=== PATIENT | male | born 1955 | race Caucasian/White ===

== ENCOUNTER 2016-09-03 14:26 | Emergency (ER) | payer BC, OTHER ==
[~2016-09-03] VITALS: Ht 172.7 cm; Wt 88.0 kg
[~2016-09-03 14:26] MED LIST: ASPEC81 PO; CARV3.12 PO; LISI20TA3 PO; VYT/1040 PO
[2016-09-03 14:31] VITALS: Ht 172.7 cm; Wt 88.0 kg
[2016-09-03] MEDS ORDERED: OXYMETAZOLINE HCL 0.05% NA SPR 15 ML BTL STA (14:58)
[2016-09-03] MEDS ORDERED: OXYMETAZOLINE HCL 0.05% NA SPR 15 ML BTL ONE (14:58)
[2016-09-03] MEDS ORDERED: CRG625 PO (15:39)
[2016-09-03] MEDS ORDERED: LSN40 PO (15:39)
[2016-09-03] MEDS ORDERED: ATOR-24 PO (15:39)
[2016-09-03] MEDS ORDERED: ASPI81TA21 PO (15:39)
[2016-09-03 16:22] LABS: HEMATOCRIT 44.9 % (42-52); MEAN CELL VOLUME 94.7 fL (80-100); MEAN CORPUSCULAR HEMOGLOBIN 32.9 pg (25-34); MEAN CORPUSCULAR HGB CONC 34.7 g/dl (32-36); MEAN PLATELET VOLUME 10.8 fL (7.4-10.4); PLATELET COUNT 246 K/uL (130-400); RED BLOOD COUNT 4.74 M/uL (4.7-6.1); WHITE BLOOD COUNT 18.74 K/uL (4.8-10.8)
[2016-09-03 16:32] LABS: PROTHROMBIN TIME (PATIENT) 10.7 SECONDS (9.0-12.0)
[2016-09-03 16:59] VITALS: BP 156/90
[2016-09-03 17:06] VITALS: PULSE 89; TEMP 36.7; O2SAT 98
--- NOTE | 2016-09-03 19:53 | EMERGENCY ROOM VISIT NOTE ---
History Report prepared by Angelaibrene: Edelmira Ash Under the Supervision of: Dr. Tee Guillen M.D. First contact with patient: 15:06 Chief Complaint: NOSE BLEED (MINOR) Stated Complaint: NOSE BLEED History of Present Illness The patient is a 61 year old male who presents to the Emergency Room with complaints of a persistent, spontaneous, right-sided nose bleed that began 2 hours ago. The patient has had some cold-like symptoms over the past week. Earlier this afternoon, he was shoveling snow. He came inside and sat down and then his nose started to bleed. The patient put gauze up his right nostril, which seemed to make the bleeding subside, until it was removed upon arrival, and the bleeding began again. The patient has never had similar nosebleeds. He is on 81 mg aspirin daily. The patient has a history of blockage of heart arteries but has never needed CABG or stents. Denies chest pain, shortness of breath or other complaints. Source of History: patient Onset: 2 hour ago Position: nose (right side) Quality: other (spontaneous) Timing: other (persistent) Associated Symptoms: No chest pain Review of Systems See HPI for pertinent positives & negatives. A total of 10 systems reviewed and were otherwise negative. Past Medical & Surgical Medical Problems: (1) Bladder cancer (2) Left inguinal hernia Family History No pertinent family history stated. Social History Smoking Status: Current Every Day Smoker Marital Status: Housing Status: lives with significant other Occupation Status: employed Current/Historical Medications Scheduled Aspirin Enteric Coated (Ecotrin Or Generic), 81 MG PO QAM Atorvastatin (Lipitor), 40 MG PO QPM Carvedilol (Carvedilol), 6.25 MG PO BID Lisinopril (Lisinopril), 40 MG PO QAM Allergies Coded Allergies: Clindamycin (Verified Allergy, Unknown, RASH, 09/03/16) Latex1 -Allergic Contact Dermititis (Verified Allergy, Unknown, ?? MOUTH SORENESS AFTER DENTAL VISIT, 09/03/16) Metoprolol (Verified Allergy, Unknown, METOPROLOL ALLERGY??, 09/03/16) Physical Exam Vital Signs Date Time Temp Pulse Resp B/P Pulse Ox O2 Delivery O2 Flow Rate FiO2 09/03/16 17:06 36.7 89 18 98 Room Air 09/03/16 16:59 36.7 89 18 156/90 98 09/03/16 14:31 36.7 102 18 168/110 94 Room Air Physical Exam Constitutional: Vital signs reviewed. Eyes: Pupils are equal round reactive to light. Conjunctiva are noninjected. ENT: Pharynx is clear without erythema or exudate. Mucous membranes are moist. Active significant bleeding from both nares. Neck supple without meningeal signs. Respiratory: Clear to auscultation bilaterally. Breath sounds are equal bilaterally. Cardiovascular: Regular rate and rhythm. No rubs or gallops. GI: Soft, nondistended and nontender. Bowel sounds are present. Musculoskeletal: No peripheral edema. No lower extremity tenderness. No CVA tenderness. Integumentary: No cyanosis. Neurological: The patient is awake and alert. No focal deficits. Psychiatric: Anxious. Medical Decision & Procedures Laboratory Results 09/03/16 16:05 Test 09/03/16 16:05 Red Blood Count 4.74 M/uL (4.7-6.1) Mean Corpuscular Volume 94.7 fL (80-100) Mean Corpuscular Hemoglobin 32.9 pg (25-34) Mean Corpuscular Hemoglobin Concent 34.7 g/dl (32-36) RDW Standard Deviation 45.2 fL (36.4-46.3) RDW Coefficient of Variation 13.0 % (11.5-14.5) Mean Platelet Volume 10.8 fL (7.4-10.4) Prothrombin Time 10.7 SECONDS (9.0-12.0) Prothromb Time International Ratio 1.0 (0.9-1.1) Activated Partial Thromboplast Time 26.2 SECONDS (21.0-31.0) Partial Thromboplastin Ratio 1.0 Laboratory results as reviewed by me. Medications Administered Medications (Trade) Dose Ordered Sig/Mary Route Start Time Stop Time Status Last Admin Dose Admin Oxymetazoline HCl (Afrin 0.05% Nasal [place]) 75 sprays STK-MED ONCE .ROUTE 09/03/16 14:58 09/03/16 15:00 DC 09/03/16 15:48 75 SPRAYS Procedure Anterior Nasal Packing Indication: Significant active bleeding from both nostrils Verbal consent obtained. Risks and benefits were explained with the usual customary discussion. A 5.5-cm nasal balloon was placed in the right naris in a standard fashion. Hemostasis was not achieved and he was bleeding profusely from the left naris. I therefore packed the left naris with a 4-1/2 rapid Rhino. His bleeding continued. Both rapid Rhino as were removed. Clots were removed with blowing his nose. Both nares were prepped with Afrin and hemaderm. A second 5-1/2 cm rapid Rhino was placed in the right naris slightly deeper than the first and inflated to greater per capacity. The patient tolerated this well. Hemostasis was achieved. No complications. ED Course 1509: The patient was evaluated in room A10. A complete history and physical exam was performed. Anterior nasal packing to the right naris was performed. 1540: At this time, the bleeding was controlled. 1544: The patient started to have bleeding again. The cuff was inflated again which seemed to stop the bleeding. 1628: I reassessed the patient. He had a minimal amount of bleeding anteriorly so I inflated the balloon with 1 cc of air. 1641: I reassessed the patient. He had no active bleeding. I discussed test results with him. He will follow up with his PCP in 2 days to have his packing checked and his CBC rechecked. The patient will be discharged home. Medical Decision This is a 61-year-old male who presents with significant epistaxis.I did perform a limited focused review of portions of the patient's old chart on the electronic medical record. The patient has had no recent pertinent visits to this hospital. I did evaluate the patient as noted above. He is presenting with profuse bleeding to both nares. He is coughing and spitting up blood and bleeding despite having a clamp on his nose. Direct pressure with my fingers they did not achieve hemostasis as well. I did talk to him about packing which he agreed to. I did pack his nose as described above. Hemostasis was achieved. I did review the patient's blood work as noted in the electronic medical record. His hematocrit is stable. His white blood cell count is elevated which may be secondary to his recent URI as well as stress from the epistaxis. I did, however, advised him to have it rechecked by his physician. He did have a little bleeding from the right naris anteriorly. I did check the balloon and it did seem to deflate slightly and so I put some more air into the balloon and hemostasis was achieved. We observed him further and he had no further bleeding. He is not having any significant pain. I did discuss risks of the balloon with him and reasons to return. He was advised to follow with his doctor in 48 hours to have it rechecked. I did discharge the patient. Impression Primary Impression: Epistaxis Additional Impression: Leukocytosis Scribe Attestation The scribe's documentation has been prepared under my direct and personally reviewed by me in its entirety. I confirm that the note above accurately reflects all work, treatment, procedures, and medical decision making performed by me. Departure Information Dispostion Home / Self-Care Referrals No Doctor, Assigned (PCP) Patient Instructions ED Nasal Packing Anterior Removable, My [facility] Additional Instructions You have been examined and treated today on an emergency basis only. This is not a substitute for, or an effort to provide, complete comprehensive medical care. It is impossible to recognize and treat all injuries or illnesses in a single emergency department visit. It is therefore important that you follow up closely with your physician in 48 hours. Call as soon as possible for an appointment. Return for worsening symptoms or if you develop fever, chest pain , shortness of breath, significant nasal pain or any other concerning symptoms. Have your doctor recheck your CBC because your white blood cell count was elevated today. Problem Qualifiers Additional Impression: Leukocytosis Leukocytosis type: unspecified Qualified Codes: D72.829 - Elevated white blood cell count, unspecified
[2016-09-09] MEDS ORDERED: AYRG (10:58)
[2016-09-09] MEDS ORDERED: SALI0.6510 (10:58)
[2016-09-09] MEDS ORDERED: NICO14DI5 TD (10:58)
[2016-09-09] MEDS ORDERED: AFRIN (10:58)
== END 2016-09-03 17:06 | disposition home or self-care (01) ==
LOC: EDBD 14:26 → C.EDA 14:29
DX: R04.0 Epistaxis (principal); D72.829 Elevated white blood cell count, unspecified; Z79.82 Long term (current) use of aspirin; Z85.51 Personal history of malignant neoplasm of bladder; F17.210 Nicotine dependence, cigarettes, uncomplicated; Z79.899 Other long term (current) drug therapy

== ENCOUNTER 2016-09-04 22:59 | Inpatient (IN) | payer OTHER ==
[~2016-09-04] VITALS: Ht 175.3 cm; Wt 85.5 kg
[~2016-09-04 22:59] MED LIST changes: -ASPEC81 PO; +ASPI81TA21 PO; +ATOR-24 PO; -CARV3.12 PO; +CRG625 PO; -LISI20TA3 PO; +LSN40 PO; -VYT/1040 PO
[2016-09-05] MEDS ORDERED: OXYMETAZOLINE HCL 0.05% NA SPR 15 ML BTL ONE (00:02)
--- NOTE | 2016-09-05 00:26 | EMERGENCY ROOM VISIT NOTE ---
History Report prepared by Chasidy: Luciana Redman Under the Supervision of: Dr. Zeina Bender M.D. First contact with patient: 23:38 Chief Complaint: NOSE BLEED (MAJOR) Stated Complaint: NOSE BLEED History of Present Illness The patient is a 61 year old male who presents to the Emergency Room with complaints of a constant nosebleed for the past 2 hours. Yesterday the patient had a spontaneous, right-sided nosebleed that began after shoveling snow. He reports that he has had cold symptoms for the past few days and he has been sneezing and blowing his nose often. He was seen in the ED yesterday for this episode and nasal packing was placed. The patient was discharged home. He had some slight bleeding down the back of his throat throughout the night. This evening he coughed and states that the nasal packing seems to have dislodged. He reports burning pain from the packing and rates the pain as a 2/10 in severity. The patient states that the bleeding has been constant and heavy since he coughed. He has had clots in the back of his throat and states that he felt like he was "drowning in blood." The patient was taking a daily baby aspirin, but stopped taking it yesterday. He denies any other blood thinners. Source of History: patient, spouse/significant other Onset: 2 hours ago Position: nose Symptom Intensity: 2/10 Quality: other (bleeding) Timing: constant Modifying Factors (Worsening): other (coughing) Review of Systems See HPI for pertinent positives & negatives. A total of 10 systems reviewed and were otherwise negative. Past Medical & Surgical Medical Problems: (1) Coronary artery disease (2) Dyslipidemia (3) History of bladder cancer (4) Hypertension (5) Posterior epistaxis Family History Cancer Social History Smoking Status: Current Every Day Smoker Marital Status: Housing Status: lives with significant other Occupation Status: employed Current/Historical Medications Scheduled Aspirin Enteric Coated (Ecotrin Or Generic), 81 MG PO QAM Atorvastatin (Lipitor), 40 MG PO QPM Carvedilol (Carvedilol), 6.25 MG PO BID Lisinopril (Lisinopril), 40 MG PO QAM Allergies Coded Allergies: Clindamycin (Verified Allergy, Unknown, RASH, 09/03/16) Latex1 -Allergic Contact Dermititis (Verified Allergy, Unknown, ?? MOUTH SORENESS AFTER DENTAL VISIT, 09/03/16) Metoprolol (Verified Allergy, Unknown, METOPROLOL ALLERGY??, 09/03/16) Physical Exam Vital Signs Date Time Temp Pulse Resp B/P Pulse Ox O2 Delivery O2 Flow Rate FiO2 09/05/16 02:00 87 20 150/83 99 Room Air 09/05/16 01:45 82 20 149/96 98 Tent 28 09/05/16 01:30 79 16 149/91 95 09/05/16 01:25 86 09/05/16 01:20 84 20 149/86 95 Room Air 09/05/16 00:43 88 20 162/95 97 Room Air 09/04/16 23:01 36.8 91 18 170/85 96 Room Air Physical Exam Vital signs reviewed. General: Well-appearing 61-year-old male, in some distress. Agitated. HEENT: No scleral icterus, PERRLA, neck supple. Periodic bleeding from the posterior oropharynx with clot, intermittent bleeding from the right nares. Atraumatic. Cardiovascular: Regular rate and rhythm, no extra sounds. Pulmonary: Clear to auscultation bilaterally, normal work of breathing. Abdomen: Soft, nontender, nondistended, positive bowel sounds. Musculoskeletal: Atraumatic, no peripheral edema. Neurologic: Patient awake alert and oriented x 3, full strength in all 4 extremities. Cranial nerves 2 through 12 grossly intact. Skin: Warm, dry, no rash Medical Decision & Procedures Laboratory Results Laboratory results per my review. Medications Administered Medications (Trade) Dose Ordered Sig/Mary Route Start Time Stop Time Status Last Admin Dose Admin Hydralazine HCl (HydrALAZINE INJ) 5 mg NOW STAT IV. 09/05/16 01:21 09/05/16 01:22 DC 09/05/16 01:45 5 MG Morphine Sulfate (MoRPHine SULFATE INJ) 2 mg STK-MED ONCE .ROUTE 09/05/16 01:20 09/05/16 01:22 DC 09/05/16 01:25 2 MG ED Course 2338: Past medical records reviewed. The patient was evaluated in room A9B. A complete history and physical examination was performed. 0028: I reassessed the patient at this time. He removed the nasal clamp and is bleeding again. Dr. Aguilar of ENT was paged. 0032: At this time I spoke with Dr. Aguilar of ENT. We discussed the patient's case and he will come to the ED to evaluate the patient. 0109: I reassessed the patient at this time. 0121: Hydralazine HCl 5 mg IV 0141: I reassessed the patient again. He is doing well. I spoke with Dr. Aguilar regarding the patient's treatment plan, and he recommended admission to medicine. 0214: I spoke with Dr. Silva. We discussed the patients results and treatment plan. [facility]. Medical Decision Differential diagnosis: Etiologies such as anterior epistaxis, coagulopathy, traumatic injury, fracture , septal hematoma, posterior epistaxis as well as other pathologies were entertained. This pt was evaluated and appeared to be in no distress. IV access was obtained and appeared to be in some discomfort. Pt H/H has dropped a bit from previous day but remains in a stable range of 13.6/39. Pt VSS. Afrin nasal spray was applied and a clamp. Pt was unable to tolerate the nasal clamp. Suction was used to remove some clot. Hemaderm was applied bilaterally with a clamp again. Pt bled through this as well. ENT c/s was obtained and Dr Aguilar agreed to evaluate the pt. He requested BP management. Pt is at his baseline BP at systolic at 140. A dose of IV hydralazine 5 mg was administered. Epistaxis was controlled after ENT management. He will be evaluated by the hospitalist for inpt evaluation. Pt is aware of the plan and agrees. Consults Time Called: 27 Consulting Physician: Dr. Aguilar Returned Call: [phone] At this time I spoke with Dr. Aguilar of ENT. We discussed the patient's case and he will come to the ED to evaluate the patient. Additional Consults: Time Called: [phone] Consulted Physician: Dr. Silva Returned Call: [phone] Additional Comments: I spoke with Dr. Silva. We discussed the patients results and treatment plan. [facility]. Impression Primary Impression: Epistaxis Scribe Attestation The scribe's documentation has been prepared under my direction and personally reviewed by me in its entirety. I confirm that the note above accurately reflects all work, treatment, procedures, and medical decision making performed by me. Departure Information Dispostion Being Evaluated By Hospitalist Referrals Rolando Diane M.D. (PCP) Patient Instructions My [facility]
[2016-09-05 00:56] LABS: HEMATOCRIT 39.2 % (42-52)
[2016-09-05] MEDS ORDERED: METOPROLOL TARTRATE 1 MG/ML VIAL IV STA (01:12)
[2016-09-05] MEDS ORDERED: METOPROLOL TARTRATE 1 MG/ML VIAL ONE (01:14)
[2016-09-05] MEDS ORDERED: MoRPHine SULFATE 2 MG/ML CARP ONE (01:20)
[2016-09-05] MEDS ORDERED: HydrALAZINE HCL 20 MG/ML VIAL IV. STA ×2 (01:21→01:25)
[2016-09-05] MEDS ORDERED: NURSING VERBAL MED ORDER ONE (02:15)
--- NOTE | 2016-09-05 02:35 | ENT CONSULTATION ---
DATE OF CONSULTATION: 09/05/2016 REQUESTING CONSULTATION: Dr. Bender of the [facility] Emergency Department. INDICATIONS: Epistaxis. HISTORY OF PRESENT ILLNESS: This is a 61-year-old man who has had a cold for about the last [id number] with a lot of nose blowing. He presented to [facility] Emergency Department last night and had a 5 cm Rapid Rhino placed on the right side of his nose. He subsequently developed bleeding from the left side of his nose. He lives in [place] about 40 miles away. Also as part of his history he has hypertension and has coronary artery disease. He continues to smoke cigarettes. He takes Aspirin 81 mg a day. After he had packing and was supplemented with a face mask with cool humidified air at 10 liters flow rate, and had also received some hydralazine, his respiratory was 82. His blood pressure was 149/96. He was 98% saturated. In general, when I saw him in room A-9 and the ENT cart was already in the room with all equipment necessary to stop his bleeding. I talked with the patient and his about the need for bilateral packing given the fact this is his second trip to the Emergency Department in 2 days, the fact that he takes aspirin, has hypertension, and current hypertensive state. I then removed his anterior nasal clip and inspected the nose. There was hemostatic agent in the nose on both sides. He has septal spur to the left side. A 7.5 cm Rapid Rhino were coated in bacitracin ointment and placed on each side of the nose. They were inflated with 5 mL of air on each side. I only used 5 mL of air because this way if he bleeds some more they can be inflated further. If he does not bleed, then 5 mL of air will be more comfortable than a full 10 mL of insufflation. I examined the oropharynx and he had a mature clot coming down from the nasopharynx to the oropharynx. I removed this with bayonet forceps. There was no further bleeding coming down from the nose to the oropharynx. ASSESSMENT AND PLAN: Severe epistaxis. I have talked with Dr. Bender and we are both in agreement that this patient will benefit from admission for several reasons. 1. He will benefit because of the need to better control blood pressure. 2. Given that both sides of his nose are packed, and he has had a recent upper respiratory tract illness, and his history of smoking, he is a set up for hypoxemia with other subsequent events. Therefore, it is the wisest move to keep him in the hospital for at least several days with a cool humidified O2 via face mask. 3. Another good reason to keep in the hospital is for pain control. It is EXTREMELY uncomfortable to have bilateral nasal packing with Rapid Rhinos. Therefore, he will benefit from pain control as well. 4. Another good reason for admission is that should he have continued bleeding, it will be easy to take him to the operating room. I will remain available to provide continued care and my cell phone is [phone]. 5. My plan is to remove his packing on 09/08/16. He will then be observed in the hospital, without packing, until 09/09/16. If he doesn't bleed, he may be discharged to home on 09/09/16. Should he bleed again, I will pack him again, and ask the hospitalist to arrange for transfer to [facility] to have an interventional radiologist embolized the involved arteries. CASSANDRA
[2016-09-05] MEDS ORDERED: MoRPHine SULFATE 2 MG/ML CARP IV STA (04:17)
--- NOTE | 2016-09-05 05:22 | History and Physical ---
History & Physical Date & Time of Service: Sep 05, 2016 at ~ 0300 . Chief Complaint: epistaxis . Primary Care Physician: Rolando Diane M.D. . History of Present Illness Source: patient, clinic records, hospital records 61 YO male followed by Dr. Diane. History of CAD, hypertension, and other problems noted below. Seen in ED 09/03/16 for epistaxis. Platelets, PT/ INR, PTT were OK. Nasal packing performed by ED physician. Developed recurrent severe epistaxis and returned to ED. Seen by ENT. Bilateral nasal packing with Rapid Rhinos performed. Admission for observation and symptom management recommended. Recent nonproductive cough. No hemoptysis or acute SOB associated with epistaxis. . Past Medical/Surgical History Chronic Medical Problems: (1) Coronary artery disease Status: Chronic (2) Dyslipidemia Status: Chronic (3) History of bladder cancer Status: Chronic (4) Hypertension Status: Chronic Family History FATHER Cancer MOTHER Hypertension Relation not specified for: Heart disease Social History Smoking Status: Current Every Day Smoker Marital Status: Occupational Status: employed Immunizations History of Influenza Vaccine: Yes History of Tetanus Vaccine?: Yes History of Pneumococcal: Yes Pneumococcal Date: Jun 01, 2011 History of Hepatitis B Vaccine: No Allergies Coded Allergies: Clindamycin (Verified Allergy, Unknown, RASH, 09/03/16) Latex1 -Allergic Contact Dermititis (Verified Allergy, Unknown, ?? MOUTH SORENESS AFTER DENTAL VISIT, 09/03/16) Metoprolol (Verified Allergy, Unknown, METOPROLOL ALLERGY??, 09/03/16) Home Medications Scheduled Aspirin Enteric Coated (Ecotrin Or Generic), 81 MG PO QAM Atorvastatin (Lipitor), 40 MG PO QPM Carvedilol (Carvedilol), 6.25 MG PO BID Lisinopril (Lisinopril), 40 MG PO QAM Review of Systems As noted in HPI. . Physical Exam Vital Signs Date Time Temp Pulse Resp B/P Pulse Ox O2 Delivery O2 Flow Rate FiO2 09/05/16 04:21 74 146/76 98 09/05/16 02:00 87 20 150/83 99 Room Air 09/05/16 01:45 82 20 149/96 98 Tent 28 09/05/16 01:30 79 16 149/91 95 09/05/16 01:25 86 09/05/16 01:20 84 20 149/86 95 Room Air 09/05/16 00:43 88 20 162/95 97 Room Air 09/04/16 23:01 36.8 91 18 170/85 96 Room Air General Appearance: WD/WN, no apparent distress Head: normocephalic, atraumatic Eyes: normal inspection, PERRL, EOMI, sclerae normal ENT: + pertinent finding (bilateral nasal packing) Neck: supple, no adenopathy, thyroid normal, no JVD Respiratory/Chest: + wheezing (diffuse mild wheezing) Cardiovascular: regular rate, rhythm, no edema, no gallop, no JVD Abdomen/GI: normal bowel sounds, non tender, soft Extremities/Musculoskelatal: normal inspection, no calf tenderness, no pedal edema Neurologic/Psych: alert, normal mood/affect, oriented x 3 Skin: normal color, warm/dry Diagnostics Laboratory Results Results Past 24 Hours Test 09/05/16 00:30 Range/Units Hemoglobin 13.6 14.0-18.0 g/dL Hematocrit 39.2 42-52 % Impression Assessment and Plan SEVERE EPISTAXIS Seen in ED by ENT. Bilateral nasal packing with Rapid Rhinos performed. Consult ENT to follow during hospital stay. CORONARY ARTERY DISEASE Hold aspirin due to epistaxis. Continue carvedilol. HYPERTENSION BP elevated in ED. Increase carvedilol to 12.5 mg BID. Continue lisinopril. IV hydralazine PRN. Follow and titrate rx. DYSLIPIDEMIA Continue atorvastatin. VTE PROPHYLAXIS No anticoagulants due to epistaxis. SCD's. Ambulate. DISPOSITION Observation status on Med-Surg Unit. Expected discharge to home. Family Medicine follow-up with Dr. Diane. . VTE Prophylaxis Risk Level: Low Given or contraindicated: SCD's
[2016-09-05] MEDS ORDERED: HydrALAZINE HCL 20 MG/ML VIAL IV. PRN (05:30)
[2016-09-05] MEDS ORDERED: LORAZEPAM 0.5 MG TAB PO PRN (05:45)
[2016-09-05] MEDS ORDERED: IV FLUIDS COMPLETED PRN (05:45)
[2016-09-05] MEDS ORDERED: OXYCODONE HCL IR 5 MG TAB (IMMEDIATE RELEASE) PO PRN (05:45)
[2016-09-05 05:54] VITALS: BP 153/84; PULSE 78; TEMP 36.7; O2SAT 95; Ht 175.3 cm; Wt 85.5 kg
[2016-09-05] MEDS ORDERED: CARVEDILOL 6.25 MG TAB PO SCH (08:00)
[2016-09-05] MEDS ORDERED: CARVEDILOL 12.5 MG TAB PO SCH (08:00)
[2016-09-05] MEDS: NICOTINE 7 MG/24 HR TDSY TD SCH (08:08)
[2016-09-05] MEDS: LISINOPRIL 40 MG TAB PO SCH (08:08)
[2016-09-05 09:00] LABS: HEMATOCRIT 37.9 % (42-52)
[2016-09-05 09:27] LABS: BUN/CREATININE RATIO 24.5 (10-20); CALCIUM 8.9 mg/dl (8.5-10.1); CREATININE 0.97 mg/dl (0.60-1.40); POTASSIUM 4.1 mmol/L (3.5-5.1)
[2016-09-05 10:08] VITALS: BP 92/58; PULSE 74; TEMP 36.7; O2SAT 95
[2016-09-05 11:00] VITALS: BP 94/58; PULSE 74
[2016-09-05 14:58] VITALS: BP 96/61; PULSE 79; TEMP 36.6; O2SAT 97
[2016-09-05 19:24] VITALS: BP 107/64; PULSE 81; TEMP 37; O2SAT 95
--- NOTE | 2016-09-05 19:50 | Progress Note ---
Medicine Progress Note Date & Time of Visit: Sep 05, 2016 at 19:46. Subjective Patient seen and examined. Family present at bedside and updated. No further epistaxis since nasal packing. Objective Last 8 Hrs Date Time Temp Pulse Resp B/P Pulse Ox O2 Delivery O2 Flow Rate FiO2 09/05/16 19:24 37.0 81 20 107/64 95 Free Flow/Blow[place] 28 09/05/16 15:23 Free Flow/Blowby 09/05/16 14:58 36.6 79 22 96/61 97 Room Air Physical Exam: General-awake; alert; NAD Eyes-EOMI; no scleral icterus ENT-bilateral nares packing Neck-no stridor; trachea midline Lungs-CTA bilaterally; no wheezes/crackles Heart-RRR; no m/r/g Abdomen-soft; NTND; nBS Extremities-no c/c/e; no deformity Neuro-no gross focal deficits Laboratory Results: Last 24 Hours Test 09/05/16 00:30 09/05/16 08:44 Hemoglobin 13.6 g/dL 13.2 g/dL Hematocrit 39.2 % 37.9 % Sodium Level 135 mmol/L Potassium Level 4.1 mmol/L Chloride Level 102 mmol/L Carbon Dioxide Level 24 mmol/L Anion Gap 9.0 mmol/L Blood Urea Nitrogen 24 mg/dl Creatinine 0.97 mg/dl Est Creatinine Clear Calc Drug Dose 84.5 ml/min Estimated GFR () 95.9 Estimated GFR (Non- 82.7 BUN/Creatinine Ratio 24.5 Random Glucose 128 mg/dl Calcium Level 8.9 mg/dl Assessment & Plan SEVERE EPISTAXIS Consulted ENT. Bilateral nasal packing with Rapid Rhinos performed. CORONARY ARTERY DISEASE Hold aspirin due to epistaxis. Continue carvedilol. HYPERTENSION Continue lisinopril and carvedilol. DYSLIPIDEMIA Continue atorvastatin. VTE PROPHYLAXIS No anticoagulants due to epistaxis. SCD's. Ambulate. DISPOSITION Observation status on Med-Surg Unit. Expected discharge to home on Friday. Family Medicine follow-up with Dr. Diane. Consultants: ENT Current Inpatient Medications: Current Inpatient Medications Medications (Trade) Dose Ordered Sig/Mary Route Start Time Stop Time Status Last Admin Dose Admin Atorvastatin Calcium (Lipitor Tab) 40 mg QPM PO 09/05/16 21:00 10/05/16 20:59 Lisinopril (Zestril Tab) 40 mg QAM PO 09/05/16 08:00 10/05/16 07:59 09/05/16 08:08 40 MG Hydralazine HCl (HydrALAZINE INJ) 10 mg Q6H PRN IV. 09/05/16 05:30 10/05/16 05:29 Carvedilol (Coreg Tab) 12.5 mg BID PO 09/05/16 08:00 10/05/16 07:59 09/05/16 08:08 12.5 MG Nicotine (Nicoderm Cq 7 Mg Patch) 1 patch QAM TD 09/05/16 08:00 10/05/16 07:59 09/05/16 08:08 1 PATCH Miscellaneous (Remove Nicoderm Patch) 1 ea HS N/A 09/05/16 21:00 10/05/16 20:59 Miscellaneous (Iv Fluids Completed) 1 ea PRN PRN N/A 09/05/16 05:45 09/05/17 05:44 Oxycodone HCl (Roxicodone Immediate Rel Tab) 5 mg Q6H PRN PO 09/05/16 05:45 09/19/16 05:44 Lorazepam (Ativan Tab) 0.5 mg Q6H PRN PO 09/05/16 05:45 10/05/16 05:44
[2016-09-05] MEDS: CARVEDILOL 6.25 MG TAB PO SCH (20:00)
[2016-09-05] MEDS: ATORVASTATIN 20 MG TAB PO SCH (21:24)
[2016-09-05 23:11] VITALS: BP 126/92; PULSE 86; TEMP 36.6; O2SAT 96
[2016-09-06 04:15] VITALS: BP 108/57; PULSE 102; TEMP 36.6; O2SAT 95
[2016-09-06 06:20] LABS: HEMATOCRIT 34.7 % (42-52); MEAN CELL VOLUME 94.3 fL (80-100); MEAN CORPUSCULAR HEMOGLOBIN 32.6 pg (25-34); MEAN CORPUSCULAR HGB CONC 34.6 g/dl (32-36); MEAN PLATELET VOLUME 10.4 fL (7.4-10.4); PLATELET COUNT 198 K/uL (130-400); RED BLOOD COUNT 3.68 M/uL (4.7-6.1); WHITE BLOOD COUNT 19.03 K/uL (4.8-10.8)
[2016-09-06 07:19] VITALS: BP 129/77; PULSE 90; TEMP 37; O2SAT 94
[2016-09-06] MEDS: LISINOPRIL 40 MG TAB PO SCH (07:52)
[2016-09-06] MEDS: NICOTINE 7 MG/24 HR TDSY TD SCH (07:52)
[2016-09-06] MEDS: CARVEDILOL 6.25 MG TAB PO SCH ×2 (07:55→20:00)
[2016-09-06 11:30] VITALS: BP 96/60; PULSE 70; TEMP 36.4; O2SAT 94
[2016-09-06 15:09] VITALS: BP 103/67; PULSE 78; TEMP 36.5; O2SAT 92
--- NOTE | 2016-09-06 18:02 | Progress Note ---
Medicine Progress Note Date & Time of Visit: Sep 06, 2016 at 18:01. Subjective Patient seen and examined. Notes some muscle cramping in his rib cage. Objective Last 8 Hrs Date Time Temp Pulse Resp B/P Pulse Ox O2 Delivery O2 Flow Rate FiO2 09/06/16 16:08 Free Flow/[place]low[place] 09/06/16 15:09 36.5 78 20 103/67 92 Room Air 09/06/16 11:30 36.4 70 20 96/60 94 Room Air Physical Exam: General-awake; alert; NAD Eyes-EOMI; no scleral icterus ENT-bilateral nares packing Neck-no stridor; trachea midline Lungs-CTA bilaterally; no wheezes/crackles Heart-RRR; no m/r/g Abdomen-soft; NTND; nBS Extremities-no c/c/e; no deformity Neuro-no gross focal deficits Laboratory Results: Last 24 Hours Test 09/06/16 05:40 White Blood Count 19.03 K/uL Red Blood Count 3.68 M/uL Hemoglobin 12.0 g/dL Hematocrit 34.7 % Mean Corpuscular Volume 94.3 fL Mean Corpuscular Hemoglobin 32.6 pg Mean Corpuscular Hemoglobin Concent 34.6 g/dl RDW Standard Deviation 45.7 fL RDW Coefficient of Variation 13.3 % Platelet Count 198 K/uL Mean Platelet Volume 10.4 fL Assessment & Plan SEVERE EPISTAXIS Consulted ENT. Bilateral nasal packing with Rapid Rhinos performed. Plan to remove packing on Friday; monitor overnight and if remains asymptomatic , then discharge on Friday. CORONARY ARTERY DISEASE Hold aspirin due to epistaxis. Continue carvedilol. HYPERTENSION Continue lisinopril and carvedilol. DYSLIPIDEMIA Continue atorvastatin. VTE PROPHYLAXIS No anticoagulants due to epistaxis. SCD's. Ambulate. DISPOSITION Expected discharge to home on Friday. Family Medicine follow-up with Dr. Diane. Consultants: ENT Current Inpatient Medications: Current Inpatient Medications Medications (Trade) Dose Ordered Sig/Mary Route Start Time Stop Time Status Last Admin Dose Admin Atorvastatin Calcium (Lipitor Tab) 40 mg QPM PO 09/05/16 21:00 10/05/16 20:59 09/05/16 21:24 40 MG Lisinopril (Zestril Tab) 40 mg QAM PO 09/05/16 08:00 10/05/16 07:59 09/06/16 07:52 40 MG Hydralazine HCl (HydrALAZINE INJ) 10 mg Q6H PRN IV. 09/05/16 05:30 10/05/16 05:29 Nicotine (Nicoderm Cq 7 Mg Patch) 1 patch QAM TD 09/05/16 08:00 10/05/16 07:59 09/06/16 07:52 1 PATCH Miscellaneous (Remove Nicoderm Patch) 1 ea HS N/A 09/05/16 21:00 10/05/16 20:59 Miscellaneous (Iv Fluids Completed) 1 ea PRN PRN N/A 09/05/16 05:45 09/05/17 05:44 Oxycodone HCl (Roxicodone Immediate Rel Tab) 5 mg Q6H PRN PO 09/05/16 05:45 09/19/16 05:44 Lorazepam (Ativan Tab) 0.5 mg Q6H PRN PO 09/05/16 05:45 10/05/16 05:44 Carvedilol (Coreg Tab) 6.25 mg BID PO 09/05/16 20:00 10/05/16 19:59 09/06/16 07:55 6.25 MG
[2016-09-06 19:59] VITALS: BP 105/68; PULSE 88
[2016-09-06] MEDS: ATORVASTATIN 20 MG TAB PO SCH (20:01)
[2016-09-06 23:30] VITALS: BP 101/67; PULSE 76; TEMP 36.8; O2SAT 96
[2016-09-07 03:31] VITALS: BP 107/66; PULSE 86; TEMP 36.8; O2SAT 94
[2016-09-07 05:34] LABS: HEMATOCRIT 32.4 % (42-52); MEAN CELL VOLUME 94.7 fL (80-100); MEAN CORPUSCULAR HEMOGLOBIN 32.2 pg (25-34); MEAN PLATELET VOLUME 10.3 fL (7.4-10.4); PLATELET COUNT 204 K/uL (130-400); RED BLOOD COUNT 3.42 M/uL (4.7-6.1); WHITE BLOOD COUNT 18.29 K/uL (4.8-10.8)
[2016-09-07 07:28] VITALS: BP 115/72; PULSE 73; TEMP 36.8; O2SAT 91
[2016-09-07] MEDS ORDERED: CALCIUM CARBONATE 500 MG CHEWABLE PO PRN (07:30)
[2016-09-07] MEDS: CARVEDILOL 6.25 MG TAB PO SCH ×2 (07:46→21:47)
[2016-09-07] MEDS: LISINOPRIL 40 MG TAB PO SCH (07:46)
[2016-09-07] MEDS: NICOTINE 7 MG/24 HR TDSY TD SCH (07:48)
--- NOTE | 2016-09-07 10:36 | Progress Note ---
Medicine Progress Note Date & Time of Visit: Sep 07, 2016 at 10:34. Subjective Patient seen and examined. Walking hallway with . Nervous about having the packing removed tomorrow. Otherwise feeling well without complaints. Objective Last 8 Hrs Date Time Temp Pulse Resp B/P Pulse Ox O2 Delivery O2 Flow Rate FiO2 09/07/16 07:28 36.8 73 20 115/72 91 Room Air 09/07/16 03:31 36.8 86 20 107/66 94 Room Air Physical Exam: General-awake; alert; NAD Eyes-EOMI; no scleral icterus ENT-bilateral nares packing Neck-no stridor; trachea midline Lungs-CTA bilaterally; no wheezes/crackles Heart-RRR; no m/r/g Abdomen-soft; NTND; nBS Extremities-no c/c/e; no deformity Neuro-no gross focal deficits Laboratory Results: Last 24 Hours Test 09/07/16 05:07 White Blood Count 18.29 K/uL Red Blood Count 3.42 M/uL Hemoglobin 11.0 g/dL Hematocrit 32.4 % Mean Corpuscular Volume 94.7 fL Mean Corpuscular Hemoglobin 32.2 pg Mean Corpuscular Hemoglobin Concent 34.0 g/dl RDW Standard Deviation 45.8 fL RDW Coefficient of Variation 13.2 % Platelet Count 204 K/uL Mean Platelet Volume 10.3 fL Assessment & Plan SEVERE EPISTAXIS Consulted ENT. Bilateral nasal packing with Rapid Rhinos performed. Plan to remove packing on Friday; monitor overnight and if remains asymptomatic , then discharge on Friday. LEUKOCYTOSIS Afebrile. Denies any symptoms (no diarrhea, no urinary symptoms, chronic smokers cough that is unchanged). Downtrending. No indication for antibiotics at this time. CORONARY ARTERY DISEASE Hold aspirin due to epistaxis. Continue carvedilol and lisinopril. HYPERTENSION Continue lisinopril and carvedilol. DYSLIPIDEMIA Continue atorvastatin. VTE PROPHYLAXIS No anticoagulants due to epistaxis. SCD's. Ambulate. DISPOSITION Expected discharge to home on Friday. Family Medicine follow-up with Dr. Diane. Consultants: ENT Current Inpatient Medications: Current Inpatient Medications Medications (Trade) Dose Ordered Sig/Mary Route Start Time Stop Time Status Last Admin Dose Admin Atorvastatin Calcium (Lipitor Tab) 40 mg QPM PO 09/05/16 21:00 10/05/16 20:59 09/06/16 20:01 40 MG Lisinopril (Zestril Tab) 40 mg QAM PO 09/05/16 08:00 10/05/16 07:59 09/07/16 07:46 40 MG Hydralazine HCl (HydrALAZINE INJ) 10 mg Q6H PRN IV. 09/05/16 05:30 10/05/16 05:29 Nicotine (Nicoderm Cq 7 Mg Patch) 1 patch QAM TD 09/05/16 08:00 10/05/16 07:59 09/07/16 07:48 1 PATCH Miscellaneous (Remove Nicoderm Patch) 1 ea HS N/A 09/05/16 21:00 10/05/16 20:59 Miscellaneous (Iv Fluids Completed) 1 ea PRN PRN N/A 09/05/16 05:45 09/05/17 05:44 Oxycodone HCl (Roxicodone Immediate Rel Tab) 5 mg Q6H PRN PO 09/05/16 05:45 09/19/16 05:44 Lorazepam (Ativan Tab) 0.5 mg Q6H PRN PO 09/05/16 05:45 10/05/16 05:44 Carvedilol (Coreg Tab) 6.25 mg BID PO 09/05/16 20:00 10/05/16 19:59 09/07/16 07:46 6.25 MG Calcium Carbonate (Tums Chew Tab) 500 mg Q4 PRN PO 09/07/16 07:30 10/07/16 07:29 09/07/16 07:45 500 MG
[2016-09-07 11:40] VITALS: BP_SYST 83; BP_SYST 84; BP_DIAS 54; BP_DIAS 55; PULSE 73; TEMP 36.8; O2SAT 97
[2016-09-07 15:19] VITALS: BP 105/67; PULSE 76; TEMP 36.5; O2SAT 96
[2016-09-07 16:00] VITALS: O2SAT 96
[2016-09-07 19:12] VITALS: BP 114/70; PULSE 81; TEMP 36.8; O2SAT 95
--- NOTE | 2016-09-07 20:45 | Progress Note ---
Progress Note [facility] [employer] Patient experiencing recurrent epistaxis- mostly posterior, minimal anteriorly. Fresh blood in posterior pharynx. No distress, hemoptysis, hematemesis (but frustrated). BP 114/70 Spoke with ENT. Additional air ( ~ 3 ml) added to Rapid Rhino balloons bilaterally until balloons tense. .
[2016-09-07] MEDS ORDERED: BENZONATATE 100MG CAP PO PRN (21:00)
[2016-09-07] MEDS ORDERED: OXYCODONE/ACETAMINOPHEN 5-325 TAB PO PRN (21:00)
[2016-09-07] MEDS ORDERED: MoRPHine SULFATE 2 MG/ML CARP IV STA (21:06)
[2016-09-07] MEDS: ATORVASTATIN 20 MG TAB PO SCH (21:48)
[2016-09-08 00:07] VITALS: BP 105/69; PULSE 75; TEMP 36.9; O2SAT 95
[2016-09-08 04:17] VITALS: BP 113/70; PULSE 80; TEMP 36.7; O2SAT 95
[2016-09-08] MEDS ORDERED: OXYMETAZOLINE HCL 0.05% NA SPR 15 ML BTL PRN (06:30)
[2016-09-08] MEDS ORDERED: NURSING VERBAL MED ORDER ONE ×2 (06:30→09:15)
[2016-09-08 06:38] LABS: HEMATOCRIT 32.7 % (42-52); MEAN CELL VOLUME 94.2 fL (80-100); MEAN CORPUSCULAR HEMOGLOBIN 31.7 pg (25-34); MEAN CORPUSCULAR HGB CONC 33.6 g/dl (32-36); MEAN PLATELET VOLUME 10.5 fL (7.4-10.4); PLATELET COUNT 245 K/uL (130-400); RED BLOOD COUNT 3.47 M/uL (4.7-6.1); WHITE BLOOD COUNT 18.45 K/uL (4.8-10.8)
[2016-09-08 07:41] VITALS: BP 143/71; PULSE 76; TEMP 36.8; O2SAT 96
--- NOTE | 2016-09-08 08:11 | Progress Note ---
Subjective Date of Service: Sep 08, 2016. Subjective Pt evaluation today including: conversation w/ patient, conversation w/ family Patient and described bleeding last night controlled by inflating the cuff on his rapid rhino packing. Problem List Medical Problems: (1) Epistaxis Status: Acute Objective Vital Signs I deflated his cuffs on his rhino rockets and he didn't bleed x 10 minutes. I therefore removed his packing bilaterally, and remained for another 10 minutes. Once again, he did not bleed. Date Time Temp Pulse Resp B/P Pulse Ox O2 Delivery O2 Flow Rate FiO2 09/08/16 07:41 36.8 76 20 143/71 96 Room Air 09/08/16 04:17 36.7 80 16 113/70 95 Room Air 09/08/16 02:11 Room Air 09/08/16 00:07 36.9 75 16 105/69 95 Room Air 09/07/16 19:12 36.8 81 16 114/70 95 Room Air 09/07/16 16:00 96 Room Air 09/07/16 15:19 36.5 76 17 105/67 96 Room Air 09/07/16 11:40 36.8 73 20 84/54 97 Room Air 83/55 Laboratory Results Last 24 Hours Test 09/08/16 05:00 White Blood Count 18.45 K/uL Red Blood Count 3.47 M/uL Hemoglobin 11.0 g/dL Hematocrit 32.7 % Mean Corpuscular Volume 94.2 fL Mean Corpuscular Hemoglobin 31.7 pg Mean Corpuscular Hemoglobin Concent 33.6 g/dl RDW Standard Deviation 45.6 fL RDW Coefficient of Variation 13.2 % Platelet Count 245 K/uL Mean Platelet Volume 10.5 fL Assessment and Plan Epistaxis with no bleeding s/p removal of packing. I have spoken to Dr. Catherine Pierce by phone, and I will make arrangements for the followin) Face tent at 10 liters of cool humidified air. 2) AYR saline gel to each nostril Q2 hours while awake. 3) Afrin 12-Hour spray 2 puffs/nostril Q 12-Hours. I applied the first dose at 8 AM. 4) AYR Saline [place] 2 puffs/nostril Q 1 hour while awake. I will return around 1 AM today to check on him. I have asked Kaya to leave in the ENT cart in the room until my return. +++++ I spoke with Dr. Catherine Pierce about the need for HER to continue the excellent job of lowering his blood pressure.
[2016-09-08] MEDS: CARVEDILOL 6.25 MG TAB PO SCH ×2 (08:26→19:58)
[2016-09-08] MEDS: NICOTINE 7 MG/24 HR TDSY TD SCH (08:26)
[2016-09-08] MEDS: LISINOPRIL 40 MG TAB PO SCH (08:26)
--- NOTE | 2016-09-08 09:36 | Progress Note ---
Medicine Progress Note Date & Time of Visit: Sep 08, 2016 at 09:34. Subjective Patient seen and examined. Nasal packing removed today. Patient has not noticed any bleeding. Objective Last 8 Hrs Date Time Temp Pulse Resp B/P Pulse Ox O2 Delivery O2 Flow Rate FiO2 09/08/16 07:41 36.8 76 20 143/71 96 Room Air 09/08/16 04:17 36.7 80 16 113/70 95 Room Air 09/08/16 02:11 Room Air Physical Exam: General-awake; alert; NAD Eyes-EOMI; no scleral icterus ENT-dried blood at the base of the nares Neck-no stridor; trachea midline Lungs-CTA bilaterally; no wheezes/crackles Heart-RRR; no m/r/g Abdomen-soft; NTND; nBS Extremities-no c/c/e; no deformity Neuro-no gross focal deficits Laboratory Results: Last 24 Hours Test 09/08/16 05:00 White Blood Count 18.45 K/uL Red Blood Count 3.47 M/uL Hemoglobin 11.0 g/dL Hematocrit 32.7 % Mean Corpuscular Volume 94.2 fL Mean Corpuscular Hemoglobin 31.7 pg Mean Corpuscular Hemoglobin Concent 33.6 g/dl RDW Standard Deviation 45.6 fL RDW Coefficient of Variation 13.2 % Platelet Count 245 K/uL Mean Platelet Volume 10.5 fL Assessment & Plan SEVERE EPISTAXIS Consulted ENT. Bilateral nasal packing with Rapid Rhinos 09/05/16 - 09/08/16. Nasal care as per ENT recommendations. LEUKOCYTOSIS Afebrile. Denies any symptoms (no diarrhea, no urinary symptoms, chronic smokers cough that is unchanged). Stable. No indication for antibiotics at this time. CORONARY ARTERY DISEASE Hold aspirin due to epistaxis. Continue carvedilol and lisinopril. HYPERTENSION Continue lisinopril and carvedilol. DYSLIPIDEMIA Continue atorvastatin. VTE PROPHYLAXIS No anticoagulants due to epistaxis. SCD's. Ambulate. DISPOSITION Expected discharge to home on Friday. Family Medicine follow-up with Dr. Diane. Consultants: ENT Current Inpatient Medications: Current Inpatient Medications Medications (Trade) Dose Ordered Sig/Mary Route Start Time Stop Time Status Last Admin Dose Admin Atorvastatin Calcium (Lipitor Tab) 40 mg QPM PO 09/05/16 21:00 10/05/16 20:59 09/07/16 21:48 40 MG Lisinopril (Zestril Tab) 40 mg QAM PO 09/05/16 08:00 10/05/16 07:59 09/08/16 08:26 40 MG Hydralazine HCl (HydrALAZINE INJ) 10 mg Q6H PRN IV. 09/05/16 05:30 10/05/16 05:29 Nicotine (Nicoderm Cq 7 Mg Patch) 1 patch QAM TD 09/05/16 08:00 10/05/16 07:59 09/08/16 08:26 1 PATCH Miscellaneous (Remove Nicoderm Patch) 1 ea HS N/A 09/05/16 21:00 10/05/16 20:59 09/07/16 21:00 1 EA Miscellaneous (Iv Fluids Completed) 1 ea PRN PRN N/A 09/05/16 05:45 09/05/17 05:44 Carvedilol (Coreg Tab) 6.25 mg BID PO 09/05/16 20:00 10/05/16 19:59 09/08/16 08:26 6.25 MG Calcium Carbonate (Tums Chew Tab) 500 mg Q4 PRN PO 09/07/16 07:30 10/07/16 07:29 09/07/16 07:45 500 MG Benzonatate (Tessalon Perles Cap) 100 mg Q8H PRN PO 09/07/16 21:00 10/07/16 20:59 Oxymetazoline HCl (Afrin 0.05% Nasal [place]) 1 sprays PRN PRN NA 09/08/16 06:30 10/08/16 06:29 Miscellaneous Information (Nursing Verbal Med Order) 1 ea ONE ONCE N/A 09/08/16 09:15 09/08/16 09:16 UNV
[2016-09-08] MEDS: SALINE NASAL GEL (AYR) 14.1 GM TUBE SCH ×6 (11:03→21:15)
[2016-09-08] MEDS: SODIUM CHLORIDE 0.65% NA SOLN 45 ML (OCEAN) SCH ×12 (11:03→22:00)
[2016-09-08 11:45] VITALS: BP_SYST 85; BP_SYST 97; BP_DIAS 51; BP_DIAS 65; PULSE 70; TEMP 36.9; O2SAT 96
[2016-09-08 15:06] VITALS: BP 93/57; PULSE 69; TEMP 36.8; O2SAT 98
[2016-09-08 19:32] VITALS: BP 114/69; PULSE 75; TEMP 36.8; O2SAT 98
[2016-09-08] MEDS: OXYMETAZOLINE HCL 0.05% NA SPR 15 ML BTL SCH (20:04)
[2016-09-08] MEDS: ATORVASTATIN 20 MG TAB PO SCH (21:00)
[2016-09-09 01:12] VITALS: BP 102/65; PULSE 68; TEMP 36.8; O2SAT 96
[2016-09-09 04:05] VITALS: BP 104/68; PULSE 67; TEMP 36.7; O2SAT 96
[2016-09-09] MEDS: SODIUM CHLORIDE 0.65% NA SOLN 45 ML (OCEAN) SCH ×4 (06:04→10:00)
[2016-09-09] MEDS: SALINE NASAL GEL (AYR) 14.1 GM TUBE SCH ×3 (06:04→10:00)
[2016-09-09 06:23] LABS: HEMATOCRIT 31.8 % (42-52); MEAN CELL VOLUME 94.4 fL (80-100); MEAN CORPUSCULAR HEMOGLOBIN 31.5 pg (25-34); MEAN CORPUSCULAR HGB CONC 33.3 g/dl (32-36); MEAN PLATELET VOLUME 10.3 fL (7.4-10.4); PLATELET COUNT 266 K/uL (130-400); RED BLOOD COUNT 3.37 M/uL (4.7-6.1); WHITE BLOOD COUNT 14.43 K/uL (4.8-10.8)
[2016-09-09 07:58] VITALS: BP 108/67; PULSE 70; TEMP 36.9; O2SAT 94
[2016-09-09] MEDS: OXYMETAZOLINE HCL 0.05% NA SPR 15 ML BTL SCH (08:17)
[2016-09-09] MEDS: LISINOPRIL 40 MG TAB PO SCH (08:18)
[2016-09-09] MEDS: NICOTINE 7 MG/24 HR TDSY TD SCH (08:18)
[2016-09-09] MEDS: CARVEDILOL 6.25 MG TAB PO SCH (08:18)
[2016-09-09 08:30] VITALS: O2SAT 94
[2016-09-09] MEDS ORDERED: NICO14DI5 TD (10:58)
[2016-09-09] MEDS ORDERED: AFRIN (10:58)
[2016-09-09] MEDS ORDERED: SALI0.6510 (10:58)
[2016-09-09] MEDS ORDERED: AYRG (10:58)
--- NOTE | 2016-09-09 11:02 | Discharge Instructions ---
Discharge Instructions Admission Reason for Admission: Nose Bleed Discharge Discharge Diagnosis / Problem: Nose bleed Discharge Goals Goal(s): Improve disease control Activity Recommendations Activity Limitations: resume your previous activity . Instructions / Follow-Up Instructions / Follow-Up Please follow up with Family Medicine Dr. Hutson on September 13 at 2:10pm (Dr. Diane did not have any sooner available appointments). Please do not take aspirin until otherwise instructed to do so at your follow up appointment. Please follow ENT Dr. Aguilar's instructions given to you on nose care. Please do not smoke! Current Hospital Diet Patient's current hospital diet: AHA Diet (Heart Healthy) Discharge Diet Recommended Diet: AHA Diet (Heart Healthy) Pending Studies Studies pending at discharge: no Medical Emergencies . Who to Call and When: Medical Emergencies: If at any time you feel your situation is an emergency, please call 911 immediately. . Non-Emergent Contact Non-Emergency issues call your: Primary Care Provider . . "Provider Documentation" section prepared by Catherine Romero. VTE Core Measure Inpt VTE Proph given/why not?: SCD's
[2016-09-09 11:12] VITALS: BP 108/67; PULSE 70; TEMP 36.9; O2SAT 94
--- NOTE | 2016-09-09 20:11 | Discharge Summary ---
Discharge Summary Admission Date: Sep 06, 2016 at 10:00 Discharge Date: Sep 09, 2016 Discharge Disposition: Home Principal Diagnosis: Severe epistaxis Consultations: ENT Medication Reconciliation New Medications: Nicotine (Nicoderm Cq 14MG Patch) 14 Mg/24 Hr Dis 1 PATCH TD DAILY for 30 Days, #30 PATCH Oxymetazoline HCl (Afrin Nasal [place]) 75 Sprays/15 Ml [place] 1 SPRAYS NA BID for 30 Days, #1 BTL Saline ([place] Nasal [place]) 0.65 % Spr 2 SPRAYS NA Q1HWA for 30 Days, #1 BTL Sodium Chloride ([place] Saline Nasal) 36 Appln/14.1 Gm Gel 1 APPLN NA Q2HWA for 30 Days, #1 BTL Continued Medications: Atorvastatin (Lipitor) 40 Mg Tab 40 MG PO QPM, TAB Carvedilol (Carvedilol) 6.25 Mg Tab 6.25 MG PO BID Lisinopril (Lisinopril) 40 Mg Tab 40 MG PO QAM Discontinued Medications: Aspirin Enteric Coated (Ecotrin Or Generic) 81 Mg Tab 81 MG PO QAM, TAB Admission Information HPI (per Admitting provider): 61 YO male followed by Dr. Diane. History of CAD, hypertension, and other problems noted below. Seen in ED 09/03/16 for epistaxis. Platelets, PT/ INR, PTT were OK. Nasal packing performed by ED physician. Developed recurrent severe epistaxis and returned to ED. Seen by ENT. Bilateral nasal packing with Rapid Rhinos performed. Admission for observation and symptom management recommended. Recent nonproductive cough. No hemoptysis or acute SOB associated with epistaxis. . Physical Exam (per Admitting): General Appearance: WD/WN, no apparent distress Head: normocephalic, atraumatic Eyes: normal inspection, PERRL, EOMI, sclerae normal ENT: + pertinent finding (bilateral nasal packing) Neck: supple, no adenopathy, thyroid normal, no JVD Respiratory/Chest: + wheezing (diffuse mild wheezing) Cardiovascular: regular rate, rhythm, no edema, no gallop, no JVD Abdomen/GI: normal bowel sounds, non tender, soft Extremities/Musculoskelatal: normal inspection, no calf tenderness, no pedal edema Neurologic/Psych: alert, normal mood/affect, oriented x 3 Skin: normal color, warm/dry Hospital Course Patient was admitted for severe epistaxis. ENT was consulted. Patient had bilateral nasal packing with rapid rhinos 09/05/16 - 09/08/16. Patient was then continued with nasal care precautions as per ENT recommendations. Patient was noted to have a leukocytosis with no infectious symptoms. This may have been a stress response. Leukocytosis downtrended and hemoglobin remained relatively stable. Patient did not require blood transfusion. Patient was continued on his home medications with the exception of aspirin. Patient was instructed to hold aspirin until instructed to resume by his PCP. Patient deemed stable for discharge with Family Medicine follow up. Patient was given a prescription for nicotine patch and was counseled on smoking cessation. PE on discharge: General- awake; alert; NAD Eyes- EOMI; no scleral icterus ENT- dried blood at the base of the nares Neck- no stridor; trachea midline Lungs- CTA bilaterally; no wheezes/crackles Heart- RRR; no m/r/g Abdomen- soft; NTND; nBS Back- no gross abnormalities Extremities- no c/c/e; no deformity Neuro- no gross focal deficits Skin- no appreciable rash or bruise . Total time spent on discharge = This includes examination of the patient, discharge planning, medication reconciliation, and communication with other providers. Discharge Instructions Discharge Instructions Admission Reason for Admission: Nose Bleed Discharge Discharge Diagnosis / Problem: Nose bleed Discharge Goals Goal(s): Improve disease control Activity Recommendations Activity Limitations: resume your previous activity . Instructions / Follow-Up Instructions / Follow-Up Please follow up with Family Medicine Dr. Hutson on September 13 at 2:10pm (Dr. Diane did not have any sooner available appointments). Please do not take aspirin until otherwise instructed to do so at your follow up appointment. Please follow ENT Dr. Aguilar's instructions given to you on nose care. Please do not smoke! Current Hospital Diet Patient's current hospital diet: AHA Diet (Heart Healthy) Discharge Diet Recommended Diet: AHA Diet (Heart Healthy) Pending Studies Studies pending at discharge: no Medical Emergencies . Who to Call and When: Medical Emergencies: If at any time you feel your situation is an emergency, please call 911 immediately. . Non-Emergent Contact Non-Emergency issues call your: Primary Care Provider . . "Provider Documentation" section prepared by Catherine Romero. VTE Core Measure Inpt VTE Proph given/why not?: SCD's Additional Copies To Lorna Hutson D.O. [place], Rolando Jimenez M.D.
== END 2016-09-09 11:30 | disposition home or self-care (01) | DRG 151 ==
LOC: C.EDB 23:01 → C.4E 09-05 02:30 → OBSVTOIN 09-06 10:00
PROVIDERS: ADMIT Hospitalist; ATTEND Internal Medicine
PROC: 2Y41X5Z Packing of Nasal Region using Packing Material (ICD-10-PCS; principal; 2016-09-05)
PROC: 2Y41X5Z Packing of Nasal Region using Packing Material (ICD-10-PCS; 2016-09-06)
PROC: 2Y41X5Z Packing of Nasal Region using Packing Material (ICD-10-PCS; 2016-09-07)
PROC: 09P Ear, Nose, Sinus, Removal (ICD-10-PCS; 2016-09-08)
DX: R04.0 Epistaxis (principal); Z79.82 Long term (current) use of aspirin; I25.10 Atherosclerotic heart disease of native coronary artery without angina pectoris; E78.5 Hyperlipidemia, unspecified; I10 Essential (primary) hypertension; Z91.040 Latex allergy status; F17.210 Nicotine dependence, cigarettes, uncomplicated; Z85.51 Personal history of malignant neoplasm of bladder; R09.02 Hypoxemia

== ENCOUNTER 2024-08-22 11:34 | Observation (INO) ==
--- OUTSIDE RECORDS SUMMARY | 2024-08-22 11:41 | External Medical Summary | Summary of Care ---
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 Name Role Phone Unavailable Primary Care Provider Unavailabl e Reason for Visit * Reason Comments Outpatient Testing Encounter Details Date Type Department Care Team (Late st Contact Info) Description 04/30/2024 1:00 PM EDT Laboratory Laboratory [address] [place] [phone] [place] [address] Loss of weight; Arthralgia, unspecified joint Allergies Active Allergy Reactions Criticality Noted Date Comments Clindamycin Hcl Rash Low 01/07/2008 Latex Low 11/26/2007 Has trouble at dentist Metoprolol Tartrate Other (Please comment) Low 06/0 02/2001 hallucinations Sulfa Antibiotics Other (Please comment) Medium 2013 PT NOT SURE documented as of this encounter (statuses as of 04/30/2024) Medications Medication Sig Dispensed Refills Start Date End Date Status AYR SALINE NASAL gel Administer into nostril as needed for Congestion. 09/10/2016 Active Triamcinolone Acetonide 0.1 % External Cream (Aristocort)Indicat ions:Flexural atopic dermatitis Apply topically to affected area 2 times a day. To affected area. 60 g 5 10/19/2020 Active Terbinafine HCl 1 % External Cream Apply topically to affected area 2 times a day. Apply to right lower calf Active Atorvastatin Calcium 40 MG Oral Tablet (Lipitor)Indication s:Dyslipidemia, goal LDL below 100,Atherosclerosis of [place] coronary artery of [place] heart without angina pectoris take one pill by mouth at bedtime 90 Tablet 1 04/28/2023 Active Citalopram Hydrobromide 20 MG Oral Tablet (CeleXA)Indications :Episode of moderate major depression (HCC) Take 1 Tablet by mouth in the morning. 90 Tablet 3 05/21/2023 Active Additional Information Patient not taking.Reported on 04/30/2024 Carvedilol 6.25 MG Oral Tablet (Coreg)Indications: Atherosclerosis of [place] coronary artery of [place] heart without angina pectoris,Chronic coronary artery disease,Primary hypertension TAKE 1 TABLET BY MOUTH TWICE A DAY 180 Tablet 1 12/15/2023 Active Lisinopril 40 MG Oral TabletIndications:C hronic coronary artery disease,Primary hypertension TAKE ONE PILL BY MOUTH AT BEDTIME 90 Tablet 1 03/03/2024 Active documented as of this encounter (statuses as of 04/30/2024) Active Problems Problem Noted Date Diagnosed Date History of bladder cancer 08/12/2019 Atherosclerosis of [place] co ronary artery of [place] heart without angina pectoris 06/12/2017 Primary hypertension 06/06/2016 Tobacco use disorder 03/25/2013 OCULAR HYPERTENSION 11/28/2003 Psoriasis Dyslipidemia, goal LDL below 100 documented as of this encounter (statuses as of 04/30/2024) Resolved Problems Problem Noted Date Diagnosed Date Resolved Date Left hydrocele 01/30/2021 04/24/2021 Malignant neoplasm of anteri or wall of urinary bladder 04/20/2018 08/12/2019 Preoperative cardiovascular examination 12/09/2011 07/17/2012 Bilateral inguinal hernia 11/18/2011 Dyslipidemia, goal LDL below 70 07/18/2009 06/14/2011 Overview: Per Lipid Taxonomy. HTN, goal below 140/90 06/16/200906/06 Overview: Modified per HTN Taxonomy. Chronic coronary artery disease 12/22/2007 06/20/2014 Coronary atherosclerosis of [place] coronary artery 12/22/2007 12/07/2018 EXAMINATION OF PARTICIPANT I N CLINICAL TRIAL- GENOMICS 12/18/2007 11/24/2009 Overview: Renamed Per Clinical Trials Billing Project. Study Titile: Genomics Markers for Patients with Cardiovascular Disease Project # [id number] PI: Cassy Castaneda MD Please call [phone] with study related questions GENOMICS CARDIO RESEARCH OTHER*[id number] 12/18/2007 09/17/2016 Overview: Renamed Per Clinical Trials Billing Project. Study Titile: Genomics Markers for Patients with Cardiovascular Disease Project # [id number] PI: Cassy Castaneda MD Please call [phone] with study related questions Other nonspecific abnormal c ardiovascular system function study 12/09/2007 12/15/2012 Preoperative cardiovascular examination 12/07/2007 03/14/2009 Malignant neoplasm of bladder 11/26/2007 06/12/2017 BENIGN HYPERTENSION 06/16/20 09 Overview: Modified per HTN Taxonomy. Major depressive disorder Overview: ICD-10 update of inactive term UNILAT INGUINAL HERNIA 07/17 Intervertebral disc prolapse 10/20/2015 Dyslipidemia, goal to be determined 07/18/2009 Overview: Per Lipid Taxonomy. Malignant neoplasm of other specified sites of bladder 09/14/2008 Dyslipidemia, goal LDL below 100 09/11/2009 documented as of this encounter (statuses as of 04/30/2024) Immunizations Name Administration Dates Next Due COVID-19 mRNA, LNP-s, No Pre serve, 2-Dose Series (Pfizer) 07/10/2021,10/24/2020,10/03/2020 Covid-19, Mrna, Lnp-s, Pf, B ivalent, 30 Mcg, IM, 12 yrs and above (Pfizer) 10/31/2022 Pneumococcal Conjugate Vacc, 13 Valent (Prevnar) 12/17/2018 Pneumococcal Polysaccharide PPV23 (Pneumovax) 10/23/2021,06/02/2008 Season Influenza, Quad, PF, Adjuvanted, 65+ Yrs, IM (FLUAD) 04/27/2020 Seasonal Influenza, High Dos e, Trivalent, PF, IM (Fluzone HD) 07/01/2019 Seasonal Influenza, PF, 6 M & above, IM , (FluLaval or Fluzone) 05/11/2019,06/15/2018 Seasonal Influenza, Quadriva lent Hd (Fluzone Hd) 04/25/2022,06/15/2021 Seasonal Influenza, Quadriva lent, No Preserve, IM 05/11/2017,06/06/2016 Seasonal Influenza, Trivalen t, (IIV3), with Preserv, (Fluzone) 06/20/2014,06/17/2013,08/24/2012,08/24,06/14/2011,09/11/2009,06/02/2008 TDAP, Age 7 and older, IM (Adacel) 03/14/2009(De venitad: Patient Refused) Varicella Zoster Vaccine (Adult) 10/20/2015 documented as of this encounter Social History Tobacco Use Types Packs/Day Years Used Date Smoking Tobacco: Every Day Cigarettes 0.1 51.7 Started: 1974 Smokeless Tobacco: Never Comments:19 Alcohol Use Standard Drinks/Week Comments No 0 (1 standard drink = 0.6 oz pur e alcohol) PHQ-2 Answer Date Recorded PHQ-2 Score 0 12/17/2018 Utilities Answer Date Recorded Do you have trouble paying y our heating, water, or electric bill? (Adult - for ages 18 years and over) Not on file 01/27/2024 Is your family able to pay t he heat, water, or electric bill? (Household - for ages 0-17 years) Not on file 01/27/2024 Does your family have access to good internet? (Household - for ages 0-17 years) Not on file 01/27/2024 Social Connections Answer Date Recorded How often do you feel lonely or isolated from those around you? (Adult - for ages 18 years and over) Not on file 01/27/2024 Sex and Gender Information Value Date Recorded Sex Assigned at Not on file Gender Identity Not on file Sexual Orientation Not on file Job Start Date Occupation Industry Not on file Not on file Not on file documented as of this encounter Plan of Treatment Pending Results Name Type Priority Associated Diagnoses Date /Time CBC WITH WBC DIFFERENTIAL AND ANEMIA REFLEX WORKUP Lab Routine Loss of weight 04/30/2024 12:39 PM EDT LYME DISEASE ANTIBODY SCREEN WITH REFLEX TO CONFIRMATION Lab Routine Arthralgia, unspecified joint 04/30/2024 12:39 PM EDT ERYTHROCYTE SEDIMENTATION RATE (ESR) Lab Routine Arthralgia, unspecified joint 04/30/2024 12:39 PM EDT TSH WITH FREE T4 IF INDICATED Lab Routine Loss of weight Arthralgia, unspecified joint 04/30/2024 12:39 PM EDT ANEMIA CBC Lab Routine Loss of weight 04/30/2024 12:39 PM EDT DIFFERENTIAL, AUTOMATED Lab Routine Loss of weight 04/30/2024 12:39 PM EDT ANEMIA REFLEX CHEMISTRY HOLD Lab Routine Loss of weight 04/30/2024 12:39 PM EDT LYME DISEASE ANTIBODY SCREEN Lab Routine Arthralgia, unspecified joint 04/30/2024 12:39 PM EDT Scheduled Procedures Name Priority Associated Diagnoses Date/Ti me COLONOSCOPY FLEXIBLE PROXIMAL DIAGNOSTIC Recall History of colon polyps Health Maintenance Due Date Last Done Comments DISCUSS TOBACCO CESSATION (REFER TO SMARTSET #9025) 1953 DTap/Tdap Vaccines (1 - Tdap) 1972 Sigmoidoscopy 1998 Zoster Vaccines (2 of 3) 12/15/2015 10/20/2015 Depression Screening 12/18/2019 12/17/2018 Fecal Occult Blood Test 08/26/2020 08/26/19 20, 07/11/2017, 11/29/2008, Additional history exists Cologuard 10/31/2023 10/30/2020 COVID-19 Vaccine ( season) 2024 10/31/2022, 07/10/2021, 10/24/2020, Additional history exists Influenza Vaccine (FLU shot) (#1) 2024 04/25/2022, 06/15/2021, 04/27/2020, Additional history exists GFR 04/23/2025 04/23/2024, 10/09, 10/23/2021, Additional history exists Albumin/Creatinine Ratio 10/23/2025 023, 10/23/2021, 08/17/2019 Colonoscopy 11/17/2025 11/17/2020, 11/17/2020 Colorectal Cancer Screening 11/17/2025 RETIRED - COLONOSCOPY-EVERY 5 YRS AGES 18-100 Discontinued 11/17/2020, 11/17/2020 Pneumococcal Vaccine: 65+ Years Completed 10/23/2021, 12/17/2018, 06/02/2008 AAA Screening Completed 06/24/2023, 10/20/2007 HPV (Gardasil) Vaccine Aged Out No lo nger eligible based on patient's age to complete this topic Hepatitis B Vaccine Aged Out No longe r eligible based on patient's age to complete this topic MENINGOCOCCAL (MENACTRA/MENVEO) Aged Out No longer eligible based on patient's age to complete this topic documented as of this encounter Medical Devices Not on filedocumented as of this encounter Visit Diagnoses Diagnosis Loss of weight Arthralgia, unspecified joint documented in this encounter Advance Directives * Full Code (Latest Code Status on File) Date Activated Date Inactivated Comments 02/19/2021 12:41 PM 02/19/2021 6:08 PM This order reflects the patients wishes and were consensually agreed upon. * Full Code Date Activated Date Inactivated Comments 02/19/2021 9:24 AM 02/19/2021 12:41 PM This order reflects the patients wishes and were consensually agreed upon.
--- OUTSIDE RECORDS SUMMARY | 2024-08-22 11:41 | External Medical Summary ---
Author Name Unknown Address Unknown Organization [id number]:LABORATORY [facility] [place] - [address] [place] [address] Laboratory Report Ordering Provider Test Date Status YVON FLYNN 04/23/2024 08:49:33 Final Observation Date Value Abnormality Reference (Units ) Status MYCODE SPECIMEN-SST 04/23/2024 08:49:33 Freezing of extracted DNA, whole blood and/or serum. Final Performing Location LABORATORY C - [address] [place] [address]
--- OUTSIDE RECORDS SUMMARY | 2024-08-22 11:41 | External Medical Summary ---
Author Name Unknown Address Unknown Organization [id number]:LABORATORY [facility] [place] - [address] [place] [address] Laboratory Report Ordering Provider Test Date Status DIANNE SINHA 04/23/2024 08:49:33 Final Observation Date Value Abnormality Reference (Units ) Status BUN 04/23/2024 08:49:33 16 6-20 (mg/dL) Final Creatinine 04/23/2024 08:49:33 0.8 0.6-1.2 (mg/dL) Final Glomerular filtration rate/1.73 sq M.predicted [Volume Rate/Area] in Serum, Plasma or Blood by Creatinine-based formula (CKD-EPI) 04/23/2024 08:49:33 >90 >=60 (mL/min) Final eGFR is calculated based on the CKD-EPI 2020 equation. Sodium 04/23/2024 08:49:33 136 135-146 (m mol/L) Final Potassium 04/23/2024 08:49:33 4.6 3.5-5.1 (m mol/L) Final Cl 04/23/2024 08:49:33 99 98-107 (mm ol/L) Final CO2 04/23/2024 08:49:33 26 22-32 (mmo l/L) Final Anion gap 04/23/2024 08:49:33 11 7-15 (mmol /L) Final Glucose 04/23/2024 08:49:33 116 70-120 (mg /dL) Final Calcium 04/23/2024 08:49:33 9.5 8.4-10.2 ( mg/dL) Final Performing Location LABORATORY [facility] [place] - [address] [place] [address]
--- OUTSIDE RECORDS SUMMARY | 2024-08-22 11:41 | External Medical Summary | Summary of Care ---
Author Name Unknown Organization [facility] Address [address] [facility] [place] [address] Phone [phone] Care Team Providers Care Progress Clerk Name Role Phone Unavailable Primary Care Provider Unavailabl e Reason for Visit * Reason Comments Re-Check Encounter Details Date Type Department Care Team (Latest Contact Info) Description 04/30/2024 12:20 PM EDT Office Visit Family Medicine [address] [phone] Lottie Soto PA-C [address] [place] [address] [place] [address] Atherosclerosis of [place] coronary artery of [place] heart without angina pectoris*; Primary hypertension; History of bladder cancer; Tobacco use disorder; Dyslipidemia, goal LDL below 100; Psoriasis; Loss of weight; Arthralgia, unspecified joint Allergies Active Allergy Reactions Criticality Noted Date Comments Clindamycin Hcl Rash Low 01/07/2008 Latex Low 11/26/2007 Has trouble at dentist Metoprolol Tartrate Other (Please comment) Low 06/02/2001 hallucinations Sulfa Antibiotics Other (Please comment) Medium [...] (Lipitor)Indication s:Dyslipidemia, goal LDL below 100,Atherosclerosis of [place] coronary artery of [place] heart without angina pectoris take one pill by mouth at bedtime 90 Tablet 1 04/28/2023 Active Citalopram Hydrobromide 20 MG Oral Tablet (CeleXA)Indications :Episode of moderate major depression (HCC) Take 1 Tablet by mouth in the morning. 90 Tablet 3 05/21/2023 Active Additional Information Patient not taking.Reported on 04/30/2024 Carvedilol 6.25 MG Oral Tablet (Coreg)Indications: Atherosclerosis of [place] coronary artery of [place] heart without angina pectoris,Chronic coronary artery disease,Primary [...] History of bladder cancer 08/12/2019 Atherosclerosis of [place] co ronary artery of [place] heart without angina pectoris 06/12/2017 Primary hypertension [...] artery disease 12/22/2007 06/20/2014 Coronary atherosclerosis of [place] coronary artery 12/22/2007 12/07/2018 EXAMINATION OF PARTICIPANT I N CLINICAL TRIAL- GENOMICS 12/18/2007 11/24/2009 Overview: Renamed Per Clinical Trials Billing Project. Study Titile: Genomics Markers for Patients with Cardiovascular Disease Project # [id number] PI: Csasy Castaneda MD Please call [phone] with study related questions GENOMICS CARDIO RESEARCH OTHER*[id number] 12/18/2007 09/17/2016 Overview: Renamed Per Clinical Trials Billing Project. Study Titile: Genomics Markers for Patients with Cardiovascular Disease Project # [id number] PI: Cassy Castaneda MD Please call [phone] with study related questions Other nonspecific abnormal [...] Age 7 and older, IM (Adacel) 03/14/2009(De ferred: Patient Refused) Varicella Zoster Vaccine (Adult) 10/20/2015 [...] on file documented as of this encounter Last Filed Vital Signs Vital Sign Reading Time Taken Comments Blood Pressure 148/70 04/30/2024 12:15 PM EDT Pulse 68 04/30/2024 12:15 PM EDT Temperature - - Respiratory Rate - - Oxygen Saturation 99% 04/30/2024 12:15 PM EDT Inhaled Oxygen Concentration - - Weight 65.1 kg (143 lb 8 oz) 04/30/2024 12:15 PM EDT Height - - Body Mass Index 22.48 10/23/2022 10:59 AM EDT documented in this encounter Progress Notes * Lottie Soto PA-C - 04/30/2024 12:24 PM EDT Chief Complaint Patient presents with Re-Check Pt here today for recheck. Pt with PMH of dyslipidemia, HTN, anxiety/depression, CAD, tobacco use, psoriasis, hx of bladder ca. Pt states that he has been losing weight. He lost about 17 lbs in the past year. He has cut back on how much he eats because he was trying to keep his BP down. Pt eats a lot more vegetables. He is a smoker. Pt has hx of bladder ca but was dc'd from urology. Pt denies GI/ sx, abdominal pain, chest pain, SOB, swelling in legs, headache, dizziness, lightheadedness. He does have some joint pain. No recent tick bites. Pt denies cough, sputum production, weakness. Review of patient's allergies indicates: Allergen Reactions Sulfa Antibiotics Other (Please comment) PT NOT SURE Clindamycin Hcl Rash Latex Has trouble at dentist Metoprolol Tartrate Other (Please comment) hallucinations Current Outpatient Medications Medication Sig Dispense Refill AYR SALINE NASAL gel Administer into nostril as needed for Congestion. Triamcinolone Acetonide 0.1 % External Cream (Aristocort) Apply topically to affected area 2 times a day. To affected area. 60 g 5 Terbinafine HCl 1 % External Cream Apply topically to affected area 2 times a day. Apply to right lower calf Atorvastatin Calcium 40 MG Oral Tablet (Lipitor) take one pill by mouth at bedtime 90 Tablet 1 Carvedilol 6.25 MG Oral Tablet (Coreg) TAKE 1 TABLET BY MOUTH TWICE A DAY 180 Tablet 1 Lisinopril 40 MG Oral Tablet TAKE ONE PILL BY MOUTH AT BEDTIME 90 Tablet 1 Citalopram Hydrobromide 20 MG Oral Tablet (CeleXA) Take 1 Tablet by mouth in the morning. (Patient not taking: Reported on 04/30/2024) 90 Tablet 3 No current facility-administered medications for this visit. Past Medical History: Diagnosis Date Arterial epistaxis 09/03/2016 admitted [facility] Coronary atherosclerosis of [place] coronary artery 12/22/2007 Depressive disorder, not elsewhere classified Dyslipidemia, goal LDL below 100 Intervertebral disc prolapse Malignant neoplasm of anterior wall of urinary bladder (HCC) 04/20/2018 Malignant neoplasm of other specified sites of bladder 12/2007 bcg tx started 01-19-08 Need for hepatitis C screening test 12/07/2013 Hepatitis C negative Other psoriasis Positive colorectal cancer screening using Cologuard test 10/30/2020 Primary hypertension Tobacco use disorder Unilateral inguinal hernia Social History Socioeconomic History Marital status: Spouse name: Not on file Number of children: 3 Years of education: Not on file Highest education level: Not on file Occupational History Not on file Tobacco Use Smoking status: Every Day Current packs/day: 0.10 Average packs/day: 0.1 packs/day for 51.7 years (5.2 ttl pk-yrs) Types: Cigarettes Start date: 1972 Smokeless tobacco: Never Tobacco comments: 17 Substance and Sexual Activity Alcohol use: No Drug use: No Comment: quit marijuana 20 yrs ago Sexual activity: Yes Partners: Female Other Topics Concern Not on file Social History Narrative ; 3; retired from [employer] Social Determinants of Health Financial Resource Strain: Not on file Food Insecurity: Not on file Transportation Needs: Not on file Social Connections: Unknown (01/27/2024) Social Connections How often do you feel lonely or isolated from those around you? (Adult - for ages 18 years and over): Not on file Housing Stability: Not on file O:Blood pressure 148/70, pulse 68, weight 65.1 kg (143 lb 8 oz), SpO2 99%. GENERAL: alert, healthy, and no distress NECK: supple, no adenopathy, no bruits, thyroid normal size, non-tender, without nodularity EYES: PERRLA, conjunctiva are pink and non-injected, sclera clear EARS: External ears normal, Canals clear, TM's Normal NOSE: no mucosal erythema, no mucosal edema, no purulent discharge OROPHARYNX: no exudate, no erythema, lips, buccal mucosa, and tongue normal, and mucous membranes are moist HEART: regular rate & rhythm, no murmur, and no gallops LUNGS: chest symmetric with normal AP diameter, no chest deformities noted, no chest wall tenderness, lungs clear to auscultation ABDOMEN: abdomen soft, non-tender, normal bowel sounds, and no masses or organomegaly EXTREMITIES: no edema A:Atherosclerosis of [place] coronary artery of [place] heart without angina pectoris (Primary) Primary hypertension History of bladder cancer Tobacco use disorder - XR CHEST 2 VIEWS Dyslipidemia, goal LDL below 100 Psoriasis Loss of weight - CBC WITH WBC DIFFERENTIAL AND ANEMIA REFLEX WORKUP; Future; Expected date: 04/30/2024 - TSH WITH FREE T4 IF INDICATED; Future; Expected date: 04/30/2024 Arthralgia, unspecified joint - LYME DISEASE ANTIBODY SCREEN WITH REFLEX TO CONFIRMATION; Future; Expected date: 04/30/2024 - ERYTHROCYTE SEDIMENTATION RATE (ESR); Future; Expected date: 04/30/2024 - TSH WITH FREE T4 IF INDICATED; Future; Expected date: 04/30/2024 Will check some labs. Will xray chest. Continue current meds. Any questions/problems, please call. If anything changes, worsens, develops new sx, please call DUSTIN. Follow Up: Return if symptoms worsen or fail to improve. Lottie Soto PA-C documented in this encounter Plan of Treatment Upcoming Encounters Date Type Department Care Team (Late st Contact Info) Description 04/30/2024 1:00 PM EDT Laboratory Laboratory [address] [place] [phone] [address] [place] [address] Loss of weight; Arthralgia, unspecified joint Pending Results Name Type Priority Associated Diagnoses Date /Time XR CHEST 2 VIEWS Medical Imaging Routine Tobacco use disorder 04/30/2024 12:50 PM EDT CBC WITH WBC DIFFERENTIAL AND ANEMIA REFLEX [...] unspecified joint 04/30/2024 12:39 PM EDT Scheduled Orders Name Type Priority Associated Diagnoses Orde r Schedule CBC WITH WBC DIFFERENTIAL AND ANEMIA REFLEX WORKUP Lab Routine Loss of weight Expected: 04/30/2024 (Approximate), Expires: 04/30/2025 LYME DISEASE ANTIBODY SCREEN WITH REFLEX TO CONFIRMATION Lab Routine Arthralgia, unspecified joint Expected: 04/30/2024 (Approximate), Expires: 04/30/2025 ERYTHROCYTE SEDIMENTATION RATE (ESR) Lab Routine Arthralgia, unspecified joint Expected: 04/30/2024 (Approximate), Expires: 04/30/2025 TSH WITH FREE T4 IF INDICATED Lab Routine Loss of weight Arthralgia, unspecified joint Expected: 04/30/2024 (Approximate), Expires: 04/30/2025 Scheduled Procedures Name Priority Associated Diagnoses Date/Ti me COLONOSCOPY FLEXIBLE PROXIMAL DIAGNOSTIC Recall History of colon polyps Health Maintenance Due Date Last Done Comments DISCUSS TOBACCO CESSATION (REFER TO SMARTSET #3293) 1953 DTap/Tdap Vaccines (1 - Tdap) 1972 [...] as of this encounter Visit Diagnoses Diagnosis Atherosclerosis of [place] coronary artery of [place] heart without angina pectoris- Primary Primary hypertension Unspecified essential hypertension History of bladder cancer Personal history of malignant neoplasm of bladder Tobacco use disorder Dyslipidemia, goal LDL below 100 Other and unspecified hyperlipidemia Psoriasis Other psoriasis Loss of weight Arthralgia, unspecified joint Loss of weight Arthralgia, unspecified joint documented [...]
--- OUTSIDE RECORDS SUMMARY | 2024-08-22 11:41 | External Medical Summary ---
Author Name Unknown Address Unknown Organization K01:LABORATORY [facility] [place] - [address] [facility] [place] [address] Laboratory Report Ordering Provider Test Date Status DIANNE SINHA 04/23/2024 08:49:33 Final Observation Date Value Abnormality Reference (Units ) Status Triglyceride 04/23/2024 08:49:33 74 <=174 ( mg/dL) Final Triglyceride Reference Range s (mg/dL):
<150 Acceptable
150-174 Borderline high
175-499 High
>=500 Very high Cholesterol 04/23/2024 08:49:33 169 <200 (mg /dL) Final Total Cholesterol Reference Ranges (mg/dL):
<200 Desirable
200-239 Borderline high
>=240 High HDL 04/23/2024 08:49:33 34 Below low normal >39 (mg/dL) Final HDL Cholesterol Reference Ra nges (mg/dL):
>=60 High (Desirable)
<50 Low (Undesirable) For Females
<40 Low (Undesirable) For Males NON-HDL CHOLESTEROL 04/23/2024 08:49:33 135 <=159 (mg/dL) Final Non-HDL Cholesterol Referenc e Range (mg/dL):
<100 Target level for high risk ASCVD patient
<130 Optimal for general population
130-159 Near optimal for general population
160-189 Borderline High
190-219 High
>=220 Very High LDL, (calculated) 04/23/2024 08:49:33 120 <= 129 (mg/dL) Final LDL Cholesterol Reference Ra nges (mg/dL):
<70 Target level for high risk ASCVD patient
<100 Optimal for general population
100-129 Near optimal for general population
130-159 Borderline high
160-189 High
>=190 Very high Performing Location LABORATORY [facility] [place] - [address] [facility] [address]
--- OUTSIDE RECORDS SUMMARY | 2024-08-22 11:41 | External Medical Summary ---
Author Name Unknown Address Unknown Organization K01:LABORATORY [facility] [place], [place] - [address] [place] [address] Laboratory Report Ordering Provider Test Date Status BUCKY PEARCE 04/30/2024 12:39:46 Final Observation Date Value Abnormality Reference (Units ) Status TSH 04/30/2024 12:39:46 1.70 0.27-4.20 (uIU/mL) Final Performing Location LABORATORY [facility] [place], [place] - [address] [place] [address]
--- OUTSIDE RECORDS SUMMARY | 2024-08-22 11:41 | External Medical Summary | Summary of Care ---
Author Name Unknown Organization [facility] Address [address] [facility] [place] [address] Phone [phone] Care Team Providers Care Web Producer Name Role Phone Unavailable Primary Care Provider Unavailabl e Reason for Visit * Reason Comments Outpatient Testing Encounter Details Date Type Department Care Team (Late st Contact Info) Description 04/23/2024 9:00 AM EDT Laboratory Laboratory [address] [place] [phone] [place] [phone] Encounter for long-term (current) use of medications; MyCode Research Other*[id number] Allergies Active Allergy Reactions Criticality Noted Date Comments Clindamycin Hcl Rash Low 01/07/2008 Latex Low 11/26/2007 Has trouble at dentist Metoprolol Tartrate Other (Please comment) Low 06/0 02/2001 hallucinations Sulfa Antibiotics Other (Please comment) Medium 2013 PT NOT SURE documented as of this encounter (statuses as of 04/23/2024) Medications Medication Sig Dispensed Refills Start Date End Date Status AYR SALINE NASAL gel Administer into nostril as needed for Congestion. 09/10/2016 Active Triamcinolone Acetonide 0.1 % External Cream (Aristocort)Indicati ons:Flexural atopic dermatitis Apply topically to affected area 2 times a day. To affected area. 60 g 5 10/19/2020 Active Terbinafine HCl 1 % External Cream Apply topically to affected area 2 times a day. Apply to right lower calf Active Atorvastatin Calcium 40 MG Oral Tablet (Lipitor)Indications :Dyslipidemia, goal LDL below 100,Atherosclerosis of [place] coronary artery of [place] heart without angina pectoris take one pill by mouth at bedtime 90 Tablet 1 04/28/2023 Active Citalopram Hydrobromide 20 MG Oral Tablet (CeleXA)Indications: Episode of moderate major depression (HCC) Take 1 Tablet by mouth in the morning. 90 Tablet 3 05/21/2023 Active Carvedilol 6.25 MG Oral Tablet (Coreg)Indications:A therosclerosis of [place] coronary artery of [place] heart without angina pectoris,Chronic coronary artery disease,Primary hypertension TAKE 1 TABLET BY MOUTH TWICE A DAY 180 Tablet 1 12/15/2023 Active Lisinopril 40 MG Oral TabletIndications:Ch ronic coronary artery disease,Primary hypertension TAKE ONE PILL BY MOUTH AT BEDTIME 90 Tablet 1 03/03/2024 Active documented as of this encounter (statuses as of 04/23/2024) Active Problems Problem Noted Date Diagnosed Date History of bladder cancer 08/12/2019 Atherosclerosis of [place] co ronary artery of [place] heart without angina pectoris 06/12/2017 Primary hypertension 06/06/2016 Tobacco use disorder 03/25/2013 OCULAR HYPERTENSION 11/28/2003 Psoriasis Dyslipidemia, goal LDL below 100 documented as of this encounter (statuses as of 04/23/2024) Resolved Problems Problem Noted Date Diagnosed Date Resolved Date Left hydrocele 01/30/2021 04/24/2021 Malignant neoplasm of anteri or wall of urinary bladder 04/20/2018 08/12/2019 Preoperative cardiovascular examination 12/09/2011 07/17/2012 Bilateral inguinal hernia 11/18/2011 Dyslipidemia, goal LDL below 70 07/18/2009 06/14/2011 Overview: Per Lipid Taxonomy. HTN, goal below 140/90 06/16/200906/06 Overview: Modified per HTN Taxonomy. Chronic coronary artery disease 12/22/2007 06/20/2014 Coronary atherosclerosis of [place] coronary artery 12/22/2007 12/07/2018 EXAMINATION OF PARTICIPANT I N CLINICAL TRIAL- GENOMICS 12/18/2007 11/24/2009 Overview: Renamed Per Clinical Trials Billing Project. Study Titile: Genomics Markers for Patients with Cardiovascular Disease Project # [id number] PI: Cassy Castaneda MD Please call [phone] with study related questions GENOMICS CARDIO RESEARCH OTHER*[id number] 12/18/2007 09/17/2016 Overview: Renamed Per Clinical Trials Billing Project. Study Titile: Genomics Markers for Patients with Cardiovascular Disease Project # [id number] PI: Cassy Castaneda MD Please call [phone] with study related questions Other nonspecific abnormal [...] as of this encounter (statuses as of 04/23/2024) Immunizations Name Administration Dates Next Due COVID-19 [...] as of this encounter Plan of Treatment Upcoming Encounters Date Type Department Care Team (Late st Contact Info) Description 04/30/2024 12:20 PM EDT Office Visit Family Medicine [address] [phone] Lottie Soto PA-C [address] [place] [address] [place] [phone] Pending Results Name Type Priority Associated Diagnoses Date /Time BASIC METABOLIC PANEL Lab Routine Encounter for long-term (current) use of medications 04/23/2024 8:49 AM EDT LIPID PANEL WITH DIRECT LDL IF TG IS HIGH Lab Routine Encounter for long-term (current) use of medications 04/23/2024 8:49 AM EDT MYCODE SUBSEQUENT ADULT Lab Routine MyCode Research Other*[id number] 04/23/2024 8:49 AM EDT MYCODE SST1 Lab Routine MyCode Research Other*[id number] 04/23/2024 8:49 AM EDT MYCODE SST2 Lab Routine MyCode Research Other*[id number] 04/23/2024 8:49 AM EDT Scheduled Procedures Name Priority Associated Diagnoses Date/Ti me COLONOSCOPY FLEXIBLE PROXIMAL DIAGNOSTIC Recall History of colon polyps Health Maintenance Due Date Last Done Comments DISCUSS TOBACCO CESSATION (REFER TO SMARTSET #3291) 1953 DTap/Tdap Vaccines (1 - Tdap) 1972 Sigmoidoscopy 1998 Zoster Vaccines (2 of 3) 12/15/2015 10/20/2015 Depression Screening 12/18/2019 12/17/2018 Fecal Occult Blood Test 08/26/2020 08/26/19 20, 07/11/2017, 11/29/2008, Additional history exists GFR 10/24/2023 10/23/2022, 10/09, 09/25/2020, Additional history exists Cologuard 10/31/2023 10/30/2020 COVID-19 Vaccine ( season) 2024 10/31/2022, 07/10/2021, 10/24/2020, Additional history exists Influenza Vaccine (FLU shot) (#1) 2024 04/25/2022, 06/15/2021, 04/27/2020, Additional history exists Albumin/Creatinine Ratio 10/23/2025 023, [...] as of this encounter Visit Diagnoses Diagnosis Encounter for long-term (current) use of medications Encounter for long-term (current) use of other medications MyCode Research Other*[id number] documented in this encounter Advance Directives * [...]
--- OUTSIDE RECORDS SUMMARY | 2024-08-22 11:41 | External Medical Summary ---
Author Name Unknown Address Unknown Organization K01:[place] [facility] [place] [address] [place] [address] Laboratory Report Ordering Provider Test Date Status YVON FLYNN 04/23/2024 08:49:33 Final Observation Date Value Abnormality Reference (Units ) Status MYCODE SPECIMEN-SST 04/23/2024 08:49:33 Freezing of extracted DNA, whole blood and/or serum. Final Performing Location LABORATORY C - [address] [place] [address]
--- OUTSIDE RECORDS SUMMARY | 2024-08-22 11:41 | External Medical Summary ---
Author Name Unknown Address Unknown Organization K01:[facility] [place] - [address] [place] [address] Laboratory Report Ordering Provider Test Date Status ARASH PEARCEKYE 04/30/2024 12:39:46 Final Observation Date Value Abnormality Reference (Units ) Status WBC, Total 04/30/2024 12:39:46 10.70 4.00-10.8 0 (K/uL) Final RBC 04/30/2024 12:39:46 4.76 4.50-5.25 (M/uL) Final Hemoglobin 04/30/2024 12:39:46 13.4 Below low normal 14 .0-16.8 (g/dL) Final Anemia reflex testing trigge rs on a HGB < 12.0 for Females and HGB < 13.0 for Males in accordance with the WHO Anemia Guidelines
Anemia reflex testing triggers on a HGB < 12.0 for Females and HGB < 13.0 for Males in accordance with the WHO Anemia Guidelines HCT 04/30/2024 12:39:46 44.0 40.0-48.4 (%) Final MCV 04/30/2024 12:39:46 92.4 82.0-99.5 (fL) Final MCH 04/30/2024 12:39:46 28.2 27.0-34.0 (pg) Final MCHC 04/30/2024 12:39:46 30.5 32.0-36.0 (g/dL) Final RDW 04/30/2024 12:39:46 15.4 11.5-15.5 (%) Final Platelets 04/30/2024 12:39:46 277 140-400 (K /uL) Final MPV 04/30/2024 12:39:46 10.6 6.6-11.1 ( fL) Final Nucleated erythrocytes/100 leukocytes [Ratio] in Blood by Automated count 04/30/2024 12:39:46 0 <=0 (/100 WBCs) Fi nal Performing Location LAB[facility]ATORY [facility] [place] - [address] [facility] [address]
--- OUTSIDE RECORDS SUMMARY | 2024-08-22 11:41 | External Medical Summary ---
Author Name Unknown Address Unknown Organization K01:LABORATORY [facility] [place] - [facility] [place] [address] Laboratory Report Ordering Provider Test Date Status BUCKY PEARCE 04/30/2024 12:39:46 Final Observation Date Value Abnormality Reference (Units ) Status Borrelia burgdorferi IgG and IgM [Interpretation] in Serum by Immunoassay 04/30/2024 12:39:46 Negative Negative Final Performing Location LABORATORY [facility] [place] - [address] [place] [address]
--- OUTSIDE RECORDS SUMMARY | 2024-08-22 11:41 | External Medical Summary ---
Author Name Unknown Address Unknown Organization K01:LABORATORY [facility] [place] - [address] [place] [address] Laboratory Report Ordering Provider Test Date Status ARASH PEARCEKYE 04/30/2024 12:39:46 Final Observation Date Value Abnormality Reference (Units ) Status SYNC LEUKOCYTES IN BLOOD BY AUTOMATED COUNT 04/30/2024 12:39:46 10.70 4.00-10.80 (K/uL) Final Segs 04/30/2024 12:39:46 63.7 40.0-75.0 (%) Final Lymphs % 04/30/2024 12:39:46 23.6 18.0-42.0 (%) Final Monos 04/30/2024 12:39:46 9.4 1.0-11.0 (%) Final Eosinophils 04/30/2024 12:39:46 2.3 0.0-6.0 (%) Final Basos 04/30/2024 12:39:46 0.7 0.0-2.0 (%) Final Immature Granulocyte, Percent 04/30/2024 12:39:46 0.3 0.0-2.0 (%) Final Absolute Segs 04/30/2024 12:39:46 6.81 1.80-7.70 (K/uL) Final Lymphs, absolute 04/30/2024 12:39:46 2.53 1.00-4.80 (K/ul) Final Monos, Abs 04/30/2024 12:39:46 1.01 0.00-1.10 (K/uL) Final Eos, Abs 04/30/2024 12:39:46 0.25 0.00-0.70 (K/uL) Final Basos, Abs 04/30/2024 12:39:46 0.07 0.00-0.20 (K/uL) Final Immature Granulocytes, Number 04/30/2024 12:39:46 0.03 0.00-0.20 (K/uL) Final Performing Location LABORATORY [facility] [place] - [address] [facility] [address]
--- OUTSIDE RECORDS SUMMARY | 2024-08-22 11:41 | External Medical Summary ---
Author Name Unknown Address Unknown Organization K01:LABORATORY [facility] [place] - [address] [place] [address] Laboratory Report Ordering Provider Test Date Status BUCKY PEARCE 04/30/2024 12:39:46 Final Observation Date Value Abnormality Reference (Units ) Status Erythrocyte sedimentation rate by Photometric method 04/30/2024 12:39:46 39 Above high normal <20 (mm/hour) Final Performing Location LABORATORY [facility] [place] - [address] [place] [address]
--- OUTSIDE RECORDS SUMMARY | 2024-08-22 11:41 | External Medical Summary | Summary of Care ---
Author Name Unknown Organization [facility] Address [address] [facility] [place] [address] Phone [phone] Care Team Providers Care Pattern Repair Person Name Role Phone Unavailable Primary Care Provider Unavailabl e Reason for Visit * Reason Comments eRx-Medication Refill Encounter Details Date Type Department Care Team (Late st Contact Info) Description 12/14/2023 Refill Family Medicine [address] [place] [phone] Rolando Diane MD [address] [place] [address] [place] [phone] Atherosclerosis [place] coronary artery of [place] heart without angina pectoris; Chronic coronary artery disease; Primary hypertension Allergies Active Allergy Reactions Criticality Noted Date Comments Clindamycin Hcl Rash Low 01/07/2008 Latex Low 11/26/2007 Has trouble at dentist Metoprolol Tartrate Other (Please comment) Low 06/02/2001 hallucinations Sulfa Antibiotics Other (Please comment) Medium 2013 PT NOT SURE documented as of this encounter (statuses as of 03/29/2024) Medications Medication Sig Dispensed Refills Start Date End Date Status AYR SALINE NASAL gel Administer into nostril as needed for Congestion. 09/10/2016 Active Triamcinolone Acetonide 0.1 % External Cream (Aristocort)Indic ations:Flexural atopic dermatitis Apply topically to affected area 2 times a day. To affected area. 60 g 5 10/19/2020 Active Terbinafine HCl 1 % External Cream Apply topically to affected area 2 times a day. Apply to right lower calf Active Atorvastatin Calcium 40 MG Oral Tablet (Lipitor)Indicati ons:Dyslipidemia, goal LDL below 100,Atheroscleros [place] coronary artery of [place] heart without angina pectoris take one pill by mouth at bedtime 90 Tablet 1 04/28/2023 Active Citalopram Hydrobromide 20 MG Oral Tablet (CeleXA)Indicatio ns:Episode of moderate major depression (HCC) Take 1 Tablet by mouth in the morning. 90 Tablet 3 05/21/2023 Active Carvedilol 6.25 MG Oral Tablet (Coreg)Indication s:Atherosclerosis [place] coronary artery of [place] heart without angina pectoris,Chronic coronary artery disease,Primary hypertension TAKE 1 TABLET BY MOUTH TWICE A DAY 180 Tablet 1 12/15/2023 Active Carvedilol 6.25 MG Oral Tablet (Coreg)Indication s:Atherosclerosis [place] coronary artery of [place] heart without angina pectoris,Chronic coronary artery disease,Primary hypertension one pill twice a day 180 Tablet 1 04/28/2023 4 Discontinued Lisinopril 40 MG Oral TabletIndications :Chronic coronary artery disease,Primary hypertension TAKE ONE PILL BY MOUTH AT BEDTIME 90 Tablet 12/01/2023 4 Discontinued documented as of this encounter (statuses as of 03/29/2024) Active Problems Problem Noted Date Diagnosed Date History of bladder cancer 08/12/2019 Atherosclerosis of [place] co ronary artery of [place] heart without angina pectoris 06/12/2017 Primary hypertension 06/06/2016 Tobacco use disorder 03/25/2013 OCULAR HYPERTENSION 11/28/2003 Psoriasis Dyslipidemia, goal LDL below 100 documented as of this encounter (statuses as of 03/29/2024) Resolved Problems Problem Noted Date Diagnosed Date Resolved Date Left hydrocele 01/30/2021 04/24/2021 Malignant neoplasm of anteri or wall of urinary bladder 04/20/2018 08/12/2019 Preoperative cardiovascular examination 12/09/2011 07/17/2012 Bilateral inguinal hernia 11/18/2011 Dyslipidemia, goal LDL below 70 07/18/2009 06/14/2011 Overview: Per Lipid Taxonomy. HTN, goal below 140/90 06/16/200906/06 Overview: Modified per HTN Taxonomy. Chronic coronary artery disease 12/22/2007 06/20/2014 Coronary atherosclerosis of [place] coronary artery 12/22/2007 12/07/2018 EXAMINATION OF PARTICIPANT I N CLINICAL TRIAL- GENOMICS 12/18/2007 11/24/2009 Overview: Renamed Per Clinical Trials Billing Project. Study Titile: Genomics Markers for Patients with Cardiovascular Disease Project # [id number] PI: Cassy Castaneda MD Please call [phone] with study related questions GENOMICS CARDIO RESEARCH OTHER*[id number] 12/18/2007 09/17/2016 Overview: Renamed Per Clinical Trials Billing Project. Study Titile: Genomics Markers for Patients with Cardiovascular Disease Project # [id number] PI: Cassy Castaneda MD Please call [phone] with study related questions Other nonspecific abnormal [...] as of this encounter (statuses as of 03/29/2024) Immunizations Name Administration Dates Next Due COVID-19 mRNA, LNP-s, No Pre serve, 2-Dose Series (paOnde) 07/10/2021,10/24/2020,10/03/2020 Covid-19, Mrna, Lnp-s, Pf, B ivalent, 30 Mcg, IM, 12 yrs and above (paOnde) 10/31/2022 Pneumococcal Conjugate Vacc, 13 Valent (Prevnar) 12/17/2018 Pneumococcal Polysaccharide PPV23 (Pneumovax) 10/23/2021,06/02/2008 Season Influenza, Quad, PF, Adjuvanted, 65+ Yrs, IM (FLUAD) 04/27/2020 Seasonal Influenza, PF, 6 M & above, IM , (FluLaval or Fluzone) 05/11/2019,06/15/2018 Seasonal Influenza, Quadriva lent Hd (Fluzone Hd) 04/25/2022,06/15/2021 Seasonal Influenza, Quadriva lent, No Preserve, IM 05/11/2017,06/06/2016 Seasonal Influenza, Split, I IV3, With Preserve, Inj 06/20/2014,06/17/2013,08/24/2012,08/24,06/14/2011,09/11/2009,06/02/2008 Seasonal Influenza, Trivalen t, High Dose, No Preserve, IM 07/01/2019 TDAP, Age 7 and older, IM (Adacel) 03/14/2009(De ferred: Patient Refused) Varicella Zoster Vaccine (Adult) 10/20/2015 documented as of this encounter Social History Tobacco Use Types Packs/Day Years Used Date Smoking Tobacco: Every Day Cigarettes 0.1 51.6 Started: 1974 Smokeless Tobacco: Never Comments:19 Alcohol [...] on file documented as of this encounter Miscellaneous Notes * Telephone Encounter - Patricio Case OSA - 03/29/2024 12:24 PM EDTSigned Prescriptions: Disp Refills Carvedilol 6.25 MG Oral Tablet (Coreg) 180 Ta*1 Sig: TAKE 1 TABLET BY MOUTH TWICE A DAYAuthorizing Provider: ANJU OLMSTEAD * Telephone Encounter - Patricio Case OSA - 03/29/2024 12:24 PM EDT Pt is scheduled with Lottie 04/30/2024 * Telephone Encounter - Katarina Espana RN - 12/15/2023 2:17 PM EDTPending Prescriptions: Disp Refills Carvedilol 6.25 MG Oral Tablet [Pharmacy M*180 Ta*1 Sig: TAKE 1 TABLET BY MOUTH TWICE A DAY * Telephone Encounter - Katarina Espana RN - 12/15/2023 2:17 PM EDT Please call pt to schedule an appt Med pended * Telephone Encounter - Sharron Mcmahon [facility] - 12/15/2023 1:59 PM EDT Pending Prescriptions: Disp Refills Carvedilol 6.25 MG Oral Tablet [Pharmacy M*180 Ta*1 Sig: TAKE 1 TABLET BY MOUTH TWICE A DAY * Telephone Encounter - Sharron Mcmahon [facility] - 12/15/2023 1:56 PM EDT Patient has no PCP under whom to authorize refills. Med previously prescribed by Dr. Diane. Thank you, Sharron Mcmahon, PharmD Clinical Pharmacist [facility] (formally Telepharmacy) [phone] 12/15/2023 1:57 PM Pending Prescriptions: Disp Refills Carvedilol 6.25 MG Oral Tablet (Coreg) [P*180 Ta*1 Sig: TAKE 1 TABLET BY MOUTH TWICE A DAY Last Visit: 04/28/2023 (in office), Visit date not found (telemedicine) Next Visit: Visit date not found If no future appointments scheduled, and last appointment is greater than a year ago, please schedule patient for a follow-up appointment Last date the medication was ordered: 04/28/23 Pharmacy: [id number] Is this request for a controlled substance? No Urine Drug Screen:No results found for this or any previous visit. Patient Phone Numbers Labs: Lab Results Component Value Date/Time CREAT 0.9 10/23/2022 11:24 AM CREAT 1.1 08/17/2019 09:55 AM POTASSIUM 4.5 10/23/2022 11:24 AM POTASSIUM 4.8 08/17/2019 09:55 AM TSH 1.11 06/04/2002 04:31 PM LDLCALC 65 10/23/2022 11:24 AM LDLCALC 88 08/17/2019 09:55 AM LDLDIRECT NOT APPLICABLE 08/17/2019 09:55 AM ALT 22 09/25/2020 02:51 PM ALT 22 12/07/2013 09:05 AM documented in this encounter Plan of Treatment Upcoming Encounters Date Type Department Care Team (Late st Contact Info) Description 04/23/2024 9:00 AM EDT Laboratory Laboratory [address] [place] [phone] [facility] [address] [place] [phone] 04/30/2024 12:20 PM EDT Office Visit Family Medicine [address] [place] [phone] Lottie Soto PA-C [address] [place] [address] [place] [phone] Scheduled Procedures Name Priority Associated Diagnoses Date/Ti me COLONOSCOPY FLEXIBLE PROXIMAL DIAGNOSTIC Recall History of colon polyps Health Maintenance Due Date Last Done Comments DISCUSS TOBACCO CESSATION (REFER TO SMARTSET #8278) 1955 DTaP,Tdap,and Td Vaccines (1 - Tdap) 1972 Sigmoidoscopy 1998 Zoster Vaccines (2 of 3) 12/15/2015 10/20/2015 Depression Screening 12/18/2019 12/17/2018 Fecal Occult Blood Test 08/26/2020 08/26/19 20, 07/11/2017, 11/29/2008, Additional history exists COVID-19 Vaccine (2022- season) 2023 10/31/2022, 07/10/2021, 10/24/2020, Additional history exists GFR 10/24/2023 10/23/2022, 10/09, 09/25/2020, Additional history exists Cologuard 10/31/2023 10/30/2020 Influenza Vaccine (FLU shot) (#1) 2024 04/25/2022, [...] this encounter Visit Diagnoses Diagnosis Atherosclerosis of [place] coronary artery of [place] heart without angina pectoris Chronic coronary artery disease Coronary atherosclerosis of unspecified type of vessel, [place] or graft Primary hypertension Unspecified essential hypertension documented in this encounter Advance Directives * [...]
--- OUTSIDE RECORDS SUMMARY | 2024-08-22 11:42 | External Medical Summary | Summary of Care ---
Author Name Unknown Organization [facility] Address [address] [facility] [place] [address] Phone [phone] Care Team Providers Care Order Make Up Clerk Name Role Phone Unavailable Primary Care Provider Unavailabl e Reason for Visit * Reason Onset Date Comments eRx-Medication Refill Left Message 03/03/2024 Encounter Details Date Type Department Care Team (Late st Contact Info) Description 03/03/2024 Refill Family Medicine [address] [place] [id number] Rolando Diane MD [address] [place] [address] [place] [id number] Chronic coronary artery disease; Primary hypertension Allergies Active Allergy Reactions Criticality Noted Date Comments Clindamycin Hcl Rash Low 01/07/2008 Latex Low 11/26/2007 Has trouble at dentist Metoprolol Tartrate Other (Please comment) Low 06/0 02/2001 hallucinations Sulfa Antibiotics Other (Please comment) Medium 2013 PT NOT SURE documented as of this encounter (statuses as of 03/03/2024) Medications Medication Sig Dispensed Refills Start Date [...] ons:Dyslipidemia, goal LDL below 100,Atheroscleros is of holy cross coronary artery of holy cross heart without angina pectoris take one pill by mouth at bedtime 90 Tablet 1 04/28/2023 Active Citalopram Hydrobromide 20 MG Oral Tablet (CeleXA)Indicatio ns:Episode of moderate major depression (HCC) Take 1 Tablet by mouth in the morning. 90 Tablet 3 05/21/2023 Active Carvedilol 6.25 MG Oral Tablet (Coreg)Indication s:Atherosclerosis of holy cross coronary artery of holy cross heart without angina pectoris,Chronic coronary artery disease,Primary hypertension TAKE 1 TABLET BY MOUTH TWICE A DAY 180 Tablet 1 12/15/2023 Active Lisinopril 40 MG Oral TabletIndications :Chronic coronary artery disease,Primary hypertension TAKE ONE PILL BY MOUTH AT BEDTIME 90 Tablet 1 03/03/2024 Active Lisinopril 40 MG Oral TabletIndications :Chronic coronary artery disease,Primary hypertension TAKE ONE PILL BY MOUTH AT BEDTIME 90 Tablet 12/01/2023 Discontinued documented as of this encounter (statuses as of 03/03/2024) Active Problems Problem Noted Date Diagnosed Date History of bladder cancer 08/12/2019 Atherosclerosis of holy cross co ronary artery of holy cross heart without angina pectoris 06/12/2017 Primary hypertension 06/06/2016 Tobacco use disorder 03/25/2013 OCULAR HYPERTENSION 11/28/2003 Psoriasis Dyslipidemia, goal LDL below 100 documented as of this encounter (statuses as of 03/03/2024) Resolved Problems Problem Noted Date Diagnosed Date Resolved Date Left hydrocele 01/30/2021 04/24/2021 Malignant neoplasm of anteri or wall of urinary bladder 04/20/2018 08/12/2019 Preoperative cardiovascular examination 12/09/2011 07/17/2012 Bilateral inguinal hernia 11/18/2011 Dyslipidemia, goal LDL below 70 07/18/2009 06/14/2011 Overview: Per Lipid Taxonomy. HTN, goal below 140/90 06/16/200906/06 Overview: Modified per HTN Taxonomy. Chronic coronary artery disease 12/22/2007 06/20/2014 Coronary atherosclerosis of holy cross coronary artery 12/22/2007 12/07/2018 EXAMINATION OF PARTICIPANT I N CLINICAL TRIAL- GENOMICS 12/18/2007 11/24/2009 Overview: Renamed Per Clinical Trials Billing Project. Study Titile: Genomics Markers for Patients with Cardiovascular Disease Project # [id number] PI: Cassy Castaneda MD Please call [phone] with study related questions GENOMICS CARDIO RESEARCH OTHER*[id number] 12/18/2007 09/17/2016 Overview: Renamed Per Clinical Trials Billing Project. Study Titile: Genomics Markers for Patients with Cardiovascular Disease Project # [id number] PI: Cassy Castaneda MD Please call [phone] with study related questions Other nonspecific abnormal [...] as of this encounter (statuses as of 03/03/2024) Immunizations Name Administration Dates Next Due COVID-19 [...] Age 7 and older, IM (Adacel) 03/14/2009(De erma: Patient Refused) Varicella Zoster Vaccine (Adult) 10/20/2015 documented as of this encounter Social History Tobacco Use Types Packs/Day Years Used Date Smoking Tobacco: Every Day Cigarettes 0.1 51.5 Started: 1974 Smokeless Tobacco: Never Comments:19 Alcohol [...] encounter Miscellaneous Notes * Telephone Encounter - Katarina Espana RN - 03/03/2024 4:23 PM EDTPending Prescriptions: Disp Refills Lisinopril 40 MG Oral Tablet 90 Tab*1 Sig: TAKE ONE PILL BY MOUTH AT BEDTIME * Telephone Encounter - Katarina Espana RN - 03/03/2024 4:21 PM EDT Please call pt to make an appt to establish with a doctor Meds pended Pending Prescriptions: Disp Refills Lisinopril 40 MG Oral Tablet [Pharmacy Me*90 Tab*1 Sig: TAKE ONE PILL BY MOUTH AT BEDTIME Last Visit: 04/28/2023 (in office), Visit date not found (telemedicine) Next Visit: Visit date not found Last date the medication was ordered: 11/2023 Patient Active Problem List Diagnosis Psoriasis OCULAR HYPERTENSION Dyslipidemia, goal LDL below 100 Tobacco use disorder Primary hypertension Atherosclerosis of holy cross coronary artery of holy cross heart without angina pectoris History of bladder cancer Labs: Lab Results Component Value Date/Time CREATININE - [facility] 0.9 10/23/2022 11:24 AM CREATININE - [facility] 1.1 08/17/2019 09:55 AM CREATININE, RANDOM URINE - [facility] 45 10/23/2022 11:24 AM CREATININE, RANDOM URINE - [facility] 53 08/17/2019 09:55 AM Lab Results Component Value Date/Time POTASSIUM - [facility] 4.5 10/23/2022 11:24 AM POTASSIUM - [facility] 4.8 08/17/2019 09:55 AM Lab Results Component Value Date/Time TSH - [facility] 1.11 06/04/2002 04:31 PM Lab Results Component Value Date/Time LDL (CALCULATED)-[facility] 93 12/07/2013 12:00 AM LDL (CALCULATED)-OUTSIDE LAB 115 05/18/2013 12:00 AM LDL CHOLESTEROL (CALCULATED) - [facility] 65 10/23/2022 11:24 AM LDL CHOLESTEROL (CALCULATED) - [facility] 84 10/23/2021 12:35 PM LDL CHOLESTEROL (CALCULATED) - [facility] 88 08/17/2019 09:55 AM LDL CHOLESTEROL (CALCULATED) - [facility] 87 01/30/2016 07:52 AM LDL CHOLESTEROL (DIRECT MEASURE) - [facility] NOT APPLICABLE 08/17/2019 09:55 AM LDL CHOLESTEROL (DIRECT MEASURE) - [facility] NOT APPLICABLE 01/30/2016 07:52 AM Lab Results Component Value Date/Time ALT - [facility] 09/25/2020 02:51 PM ALT - [facility] 12/07/2013 09:05 AM Hemoglobin AIC Results: No results found for: "HEMOGLOBIN A1C" * Telephone Encounter - Laurence Schmitz CPhT - 03/03/2024 4:03 PM EDTPending Prescriptions: Disp Refills Lisinopril 40 MG Oral Tablet [Pharmacy Med*90 Tab*0 Sig: TAKE ONE PILL BY MOUTH AT BEDTIME * Telephone Encounter - Laurence Schmitz CPhT - 03/03/2024 4:02 PM EDT Received message from [facility] regarding patient needing an appointment and labs. Call Placed, Left message on voicemail advising of required labs and to call back for an appointment. Thank you, Laurence Schmitz CPhT [employer] [facility] [address] [place] [address], [address] [place] [phone] * Telephone Encounter - Patsy Graham [facility] - 03/03/2024 1:29 PM EDTPending Prescriptions: Disp Refills Lisinopril 40 MG Oral Tablet [Pharmacy Med*90 Tab*0 Sig: TAKE ONE PILL BY MOUTH AT BEDTIME * Telephone Encounter - Patsy Graham RPh - 03/03/2024 1:26 PM EDT Provided 0 days supply with 0 refill. Per refill protocol patient should have CMP on file within past year. Reviewed AMP report, Care Gaps/Health Maintenance, medications list, and for any routine labs typically ordered for this patient. Lab orders placed. Please contact patient to schedule office visit with PRIMARY CARE and advise of labs ordered for blood draw. Fasting is not required. Advise to obtain labs before requesting the next refill. Patient needs OV to establish with new PCP. After contacting, please forward to [facility] Last Visit: 04/28/2023 (in office), Visit date not found (telemedicine) Next Visit: Visit date not found Thank you, Patsy Graham [facility] Clinical Pharmacist [facility] 03/03/24 1:26 PM [phone] * Telephone Encounter - Patsy Graham RPh - 03/03/2024 1:25 PM EDT Did you pend patient's preferred pharmacy and medication before forwarding?yes Pharmacy: [facility] #[id number] Pending Prescriptions: Disp Refills Lisinopril 40 MG Oral Tablet [Pharmacy Me*90 Tab*0 Sig: TAKE ONE PILL BY MOUTH AT BEDTIME Last Visit: 04/28/2023 (in office), Visit date not found (telemedicine) Next Visit: Visit date not found If no future appointments scheduled, and last appointment is greater than a year ago, please schedule patient for a follow-up appointment Last date the medication was ordered: 12/01/2023 Is this request for a controlled substance?No Urine Drug Screen:No results found for this [...] documented in this encounter Plan of Treatment Scheduled Procedures Name Priority Associated Diagnoses Date/Ti me COLONOSCOPY FLEXIBLE PROXIMAL DIAGNOSTIC Recall History of colon polyps Health Maintenance Due Date Last Done Comments DISCUSS TOBACCO CESSATION (REFER TO SMARTSET #3296) 1955 DTaP,Tdap,and Td Vaccines (1 - Tdap) 1972 Sigmoidoscopy 1998 Zoster Vaccines (2 of 3) 12/15/2015 10/20/2015 Depression Screening 12/18/2019 12/17/2018 Fecal Occult Blood Test 08/26/2020 08/26/19, 07/11/2017, 11/29/2008, Additional history exists COVID-19 Vaccine ( season) 2023 10/31/2022, 07/10/2021, 10/24/2020, Additional history [...] as of this encounter Visit Diagnoses Diagnosis Chronic coronary artery disease Coronary atherosclerosis of unspecified type of vessel, holy cross or graft Primary hypertension Unspecified essential hypertension [...]
--- NOTE | 2024-08-22 11:48 | Emergency Department Note ---
Impression & Plan Syncope and collapse ED Provider Note HISTORY OF PRESENT ILLNESS: Patient is a 68-year-old male presenting after syncopal episode. Patient reports that he was in the bathroom when all of a sudden he got lightheaded and the next thing he remembers is he woke up on the ground. He did hit his head. He is not on any anticoagulation or antiplatelet therapy. He denies any chest pain or shortness of breath prior to the episode. Denies any headache or changes in vision or new numbness, tingling or weakness in his extremities. Denies any history of cardiac stents. He denies any abdominal pain, nausea or vomiting. ROS: as above PHYSICAL EXAM: Constitutional: Patient appears in no acute distress. HENT: Head: Normocephalic. Hematoma to left upper forehead. Eyes: EOMI, PERRL Mouth/Throat: Mucous membranes moist. Neck: Trachea midline. Neck supple. Cervical collar in place by EMS. No midline cervical spine tenderness to palpation. Cardiovascular: RRR, No murmurs, rubs or gallops. Intact distal pulses. Pulmonary/Chest: No respiratory distress. Breath sounds clear and equal bilaterally. No wheezes or rales. Abdominal: Abdomen soft, no tenderness, rebound or guarding. Musculoskeletal: No edema, tenderness or deformity noted. Skin: Warm and dry. No rash, erythema, pallor or cyanosis Psychiatric: Appropriate mood and affect for situation. Neurological: Alert and keenly responsive. CN II-XII grossly intact, moving all extremities equally and fully. MDM: - Vitals signs showed hypertension. - History obtained via patient. History as above. - Chronic conditions affecting care: CAD; HTN; HLD - Differential diagnoses include, but are not limited to: CVA; intracranial hemorrhage; ACS; dysrhythmia; electrolyte abnormality - Order placed for continuous cardiac monitoring. At this time, monitor showed rate of 83 bpm with normal sinus rhythm, per my interpretation. - External medical records reviewed. - EKG interpreted by myself showed normal sinus rhythm. Rate 74 bpm. QT 372. No acute ischemic changes. Noted to have some artifact in V1 through V3. - Laboratory workup interpreted by myself showed leukocytosis (WBC 14.77); normal PT/INR; slight hyponatremia (Na 135); normal troponin; normal lipase; normal TSH - Viral respiratory panel negative - CT head wo contrast negative for acute intracranial pathology. Noted to have a left frontal soft tissue scalp swelling. - CT cervical spine wo contrast negative for acute pathology - CXR negative for pneumonia, per my interpretation - The patient's cervical collar was removed today. The patient's imaging was reviewed and the CT C-Spine was negative for acute injury. The patient was alert and oriented prior to his exam. On exam, he was non-tender to palpation midline and had full ROM without any neurologic deficits. The patient tolerated this procedure well. Collar removed at 14:47. - Unclear etiology for patient's syncopal episode. However, given his age and history of presenting illness, will admit for further cardiac workup. - Discussion was had with showcase trimmer about patient's case and need for admission - Hospitalist consulted for admission - [facility] ASSESSMENT AND PLAN: Diagnosis: Syncope and collapse Plan: Admit Past Med/Surg History Problem List (Updated 08/22/24 @ 16:01 by Edelmira Obando MD) Syncope and collapse (Acute) Epistaxis (Acute) Hypertension (Chronic) Dyslipidemia (Chronic) Coronary artery disease (Chronic) History of bladder cancer (Chronic) Posterior epistaxis Social History Smoking Status: Current every day smoker Tobacco Type: Cigarettes Preferred Language: Tajik Feels Safe at Home: Yes Allergies Allergies Allergy/AdvReac Type Severity Reaction Status Date / Time clindamycin Allergy Unknown RASH Verified 08/22/24 15:38 latex Allergy Unknown ?? Verified 08/22/24 15:38 MOUTH SORENESS AFTER DENTAL VISIT metoprolol Allergy Unknown METOPROLOL Verified 08/22/24 15:38 ALLERGY?? Home Meds Home Medications Medication Instructions Recorded Confirmed atorvastatin 40 mg tablet 40 mg PO QPM 04/30/23 08/22/24 carvedilol 6.25 mg tablet 6.25 mg PO BID 04/30/23 08/22/24 lisinopril 40 mg tablet 40 mg PO QAM 04/30/23 08/22/24 ibuprofen 200 mg tablet 200 mg PO QAM 08/22/24 08/22/24 sodium chloride 0.65 % nasal spray 2 spray intranasal Q4H PRN Nasal 08/22/24 08/22/24 aerosol Congestion/Dryness Results & Data (ED) Vital Signs Vital Signs - 24 hr 08/22/24 11:41 08/22/24 11:45 08/22/24 11:48 Temperature 36.8 C Temperature Source Oral Pulse Rate 77 79 Pulse Rate [Apical] Pulse Rate from SpO2 Sensor 79 Respiratory Rate 14 28 H Respiratory Effort / Characteristics Non-Labored Respiratory Depth Normal Respiratory Pattern Regular Blood Pressure 129/97 129/97 Blood Pressure [Right Arm] Blood Pressure Mean 107 107 Blood Pressure Mean [Right Arm] Blood Pressure Position Lying Pulse Oximetry 96 96 97 Oxygen Delivery Method Room Air Room Air Sepsis Recent Fever Within 48 Hours No Sepsis New/Unexplained Change in Mental Status No Sepsis Action Taken by Nursing No Action Required 08/22/24 12:00 08/22/24 12:30 08/22/24 12:51 Temperature Temperature Source Pulse Rate 75 78 75 Pulse Rate [Apical] Pulse Rate from SpO2 Sensor 74 79 Respiratory Rate 20 28 H Respiratory Effort / Characteristics Respiratory Depth Respiratory Pattern Blood Pressure 146/72 H 142/81 H Blood Pressure [Right Arm] Blood Pressure Mean 96 101 Blood Pressure Mean [Right Arm] Blood Pressure Position Pulse Oximetry 97 100 Oxygen Delivery Method Sepsis Recent Fever Within 48 Hours Sepsis New/Unexplained Change in Mental Status Sepsis Action Taken by Nursing 08/22/24 13:06 08/22/24 13:48 08/22/24 14:00 Temperature Temperature Source Pulse Rate 75 77 80 Pulse Rate [Apical] Pulse Rate from SpO2 Sensor 76 78 81 Respiratory Rate 18 17 22 Respiratory Effort / Characteristics Respiratory Depth Respiratory Pattern Blood Pressure 149/79 H 176/90 H 144/74 H Blood Pressure [Right Arm] Blood Pressure Mean 102 118 97 Blood Pressure Mean [Right Arm] Blood Pressure Position Pulse Oximetry 94 97 97 Oxygen Delivery Method Sepsis Recent Fever Within 48 Hours Sepsis New/Unexplained Change in Mental Status Sepsis Action Taken by Nursing 08/22/24 14:30 08/22/24 14:30 08/22/24 14:30 Temperature Temperature Source Pulse Rate 82 Pulse Rate [Apical] Pulse Rate from SpO2 Sensor Respiratory Rate 20 Respiratory Effort / Characteristics Respiratory Depth Respiratory Pattern Blood Pressure 159/77 H 159/77 H 159/77 H Blood Pressure [Right Arm] Blood Pressure Mean 111 111 111 Blood Pressure Mean [Right Arm] Blood Pressure Position Pulse Oximetry 98 Oxygen Delivery Method Room Air Sepsis Recent Fever Within 48 Hours Sepsis New/Unexplained Change in Mental Status Sepsis Action Taken by Nursing 08/22/24 14:48 08/22/24 14:54 08/22/24 15:00 Temperature Temperature Source Pulse Rate 84 83 Pulse Rate [Apical] 83 Pulse Rate from SpO2 Sensor 85 83 Respiratory Rate 21 23 19 Respiratory Effort / Characteristics Non-Labored Spontaneous Respiratory Depth Normal Respiratory Pattern Regular Blood Pressure Blood Pressure [Right Arm] 157/80 H Blood Pressure Mean Blood Pressure Mean [Right Arm] 105 Blood Pressure Position Pulse Oximetry 96 97 97 Oxygen Delivery Method Room Air Sepsis Recent Fever Within 48 Hours Sepsis New/Unexplained Change in Mental Status Sepsis Action Taken by Nursing 08/22/24 15:00 08/22/24 15:04 08/22/24 15:18 Temperature Temperature Source Pulse Rate 83 Pulse Rate [Apical] Pulse Rate from SpO2 Sensor 84 Respiratory Rate 22 21 Respiratory Effort / Characteristics Respiratory Depth Respiratory Pattern Blood Pressure Blood Pressure [Right Arm] Blood Pressure Mean Blood Pressure Mean [Right Arm] Blood Pressure Position Pulse Oximetry 96 97 Oxygen Delivery Method Room Air Sepsis Recent Fever Within 48 Hours Sepsis New/Unexplained Change in Mental Status Sepsis Action Taken by Nursing 08/22/24 15:31 Temperature Temperature Source Pulse Rate Pulse Rate [Apical] Pulse Rate from SpO2 Sensor Respiratory Rate Respiratory Effort / Characteristics Respiratory Depth Respiratory Pattern Blood Pressure 169/79 H Blood Pressure [Right Arm] Blood Pressure Mean 115 Blood Pressure Mean [Right Arm] Blood Pressure Position Pulse Oximetry Oxygen Delivery Method Sepsis Recent Fever Within 48 Hours Sepsis New/Unexplained Change in Mental Status Sepsis Action Taken by Nursing Laboratory Data 08/22/24 11:49 08/22/24 11:49 Lab Results 08/22/24 08/22/24 Range/Units 11:49 14:37 WBC 14.77 H (4.8-10.8) K/ul RBC 4.64 L (4.70-6.10) M/uL Hgb 13.3 L (14.0-18.0) g/dl Hct 41.4 L (42.0-52.0) % MCV 89.2 (80.0-100.0) fL MCH 28.7 (25.0-34.0) pg MCHC 32.1 (32.0-36.0) g/dL RDW Std Deviation 46.5 H (36.4-46.3) fL RDW Coeff of [place] 14.3 (11.5-14.5) % Plt Count 284 (130-400) K/uL MPV 9.4 (9.4-12.4) fL Immature Gran % (Auto) 0.5 % Neut % (Auto) 79.2 % Lymph % (Auto) 12.2 % [place] % (Auto) 6.5 % Eos % (Auto) 1.1 % Baso % (Auto) 0.5 % Neut # (Auto) 11.71 H (1.40-6.50) K/uL Lymph # (Auto) 1.80 (1.20-3.40) K/uL [place] # (Auto) 0.96 H (0.11-0.59) K/uL Eos # (Auto) 0.16 (0.00-0.50) K/uL Baso # (Auto) 0.07 (0.00-0.20) K/uL Immature Gran # (Auto) 0.07 (0.01-0.20) K/uL PT 11.5 (9.0-12.0) Seconds INR 1.1 (0.9-1.1) Sodium 135 L (136-145) mmol/L Potassium 4.2 (3.5-5.1) mmol/L Chloride 101 (98-107) mmol/L Carbon Dioxide 27 (21-32) mmol/L Anion Gap 7 (3-11) BUN 20 (6-23) mg/dl Creatinine 0.79 (0.6-1.4) mg/dl Est Cr Clr Drug Dosing 80.1 ml/min eGFR 95.57 BUN/Creatinine Ratio 25.3 H (10-20) Glucose 119 H (70-99(Fasting)) mg/dl Calcium 9.2 (8.6-10.3) mg/dl Magnesium 2.0 (1.7-2.4) mg/dl Total Bilirubin 0.6 (0.2-1.0) mg/dl AST 15 (13-39) U/L ALT 9 (7-52) U/L Alkaline Phosphatase 105 H (34-104) U/L Troponin I High Sens 5.0 (0-20) pg/ml Total Protein 8.4 H (6.0-8.3) gm/dl Albumin 4.0 (3.4-5.0) gm/dl Globulin 4.4 H (2.5-4.0) gm/dl Albumin/Globulin Ratio 0.9 (0.9-2) Lipase 6 L (11-82) U/L TSH 1.924 (0.300-4.500) uIu/ml Adenovirus (PCR) Not Detected (NotDetected) B. pertussis DNA (PCR) Not Detected (NotDetected) B.parapertussis DNA PCR Not Detected (NotDetected) C. pneumoniae DNA (PCR) Not Detected (NotDetected) Coronavirus OC43 (PCR) Not Detected (NotDetected) Coronavirus HKU1 (PCR) Not Detected (NotDetected) Coronavirus 229E (PCR) Not Detected (NotDetected) SARS-CoV-2 (PCR) Not Detected (NotDetected) Coronavirus NL63 (PCR) Not Detected (NotDetected) Human Metapneumovir PCR Not Detected (NotDetected) Influenza Type A (PCR) Not Detected (NotDetected) Influenza Type B (PCR) Not Detected (NotDetected) M. pneumoniae (PCR) Not Detected (NotDetected) Parainfluenza 1 (PCR) Not Detected (NotDetected) Parainfluenza 2 (PCR) Not Detected (NotDetected) Parainfluenza 3 (PCR) Not Detected (NotDetected) Parainfluenza 4 (PCR) Not Detected (NotDetected) RSV (PCR) Not Detected (NotDetected) Entero/Rhino (PCR) Not Detected (NotDetected) Imaging Data Radiologist's Impression: Cervical Spine CT 08/22/24 11:45 CT cervical spine wo con CLINICAL HISTORY: syncope; fall from standing TECHNIQUE: Multidetector row helical CT of the cervical spine was performed without administration of intravenous contrast. Coronal and sagittal reformations were obtained. Automated dose lowering techniques and/or adjustment according to patient size were utilized for this exam. Comparison: None available at the time of this dictation. FINDINGS: No acute fractures or subluxations are identified. The vertebral body heights and disk spaces are well maintained. The alignment is normal. Soft tissues are unremarkable. IMPRESSION: No evidence of acute bony injury. ACT 112: Negative or not required by law. Electronically signed by: Juan Olivo M.D. 08/22/2024 12:[address] 08/22/24 11:45 CT head/brain wo con CLINICAL HISTORY: syncope; fall from standing Technique: Contiguous axial CT images of the head were acquired from the base of the skull to the vertex without intravenous contrast administration. Images were viewed in brain, subdural and bone windows. Automated dose lowering techniques and/or adjustment according to patient size were utilized for this exam. Comparison: None available at the time of this dictation. Findings: The ventricles, basal cisterns, and cerebral sulci are normal. There is no acute intracranial hemorrhage or evidence of acute territorial infarction. Neither mass effect, shift of the midline structures, nor abnormal extra-axial fluid collections are shown. Imaged portions of the paranasal sinuses and mastoid air cells are clear. The orbits appear normal. There are no acute fractures of the calvaria. Scalp swelling is seen in the left frontal soft tissues. Impression: No acute intracranial hemorrhage or skull fractures. Scalp swelling is seen in the left frontal soft tissues. ACT 112: Negative or not required by law. Electronically signed by: Juan Olivo M.D. 08/22/2024 12:40 PM Chest X-Ray 08/22/24 13:17 Chest radiograph, one view History: Chest pain Comparison: None Findings: Single AP view of the chest performed. No focal consolidation or pleural effusion. No pneumothorax. The cardiomediastinal silhouette is within normal limits. Normal pulmonary vascularity. No evidence for lymphadenopathy. No visualized bony or soft tissue abnormality. Impression: Normal chest radiograph Electronically signed by Micah Davis 08-22-2024 3:30 PM Discharge Plan Visit Data Chief Complaint: Syncope Stated Complaint: SYNCOPE ED Provider: Edelmira Obando Discharge Problem: Syncope and collapse Forms Stand Alone Forms: My [facility] Prescriptions Prescriptions: No Action atorvastatin 40 mg tablet 40 mg PO QPM carvedilol 6.25 mg tablet 6.25 mg PO BID lisinopril 40 mg tablet 40 mg PO QAM ibuprofen 200 mg Tablet 200 mg PO QAM [place] Nasal Mist 0.65 % Aerosol,[place] 2 spray INTRANASAL Q4H PRN (Reason: Nasal Congestion/Dryness) Referrals Referrals: Rolando Diane MD [Outside Practitioners] -
[2024-08-22 12:07] LABS: Basophils # (auto) 0.07 K/uL (0.00-0.20); Basophils % (auto) 0.5 %; Eosinophils # (auto) 0.16 K/uL (0.00-0.50); Eosinophils % (auto) 1.1 %; Hematocrit (blood only) 41.4 % (42.0-52.0); Hemoglobin 13.3 g/dl (14.0-18.0); Immature Granulocytes # (auto) 0.07 K/uL (0.01-0.20); Immature Granulocytes % (auto) 0.5 %; Lymphocytes % (auto) 12.2 %; Mean Corpuscular Hemoglobin 28.7 pg (25.0-34.0); Mean Corpuscular Hgb Conc 32.1 g/dL (32.0-36.0); Mean Corpuscular Volume 89.2 fL (80.0-100.0); Mean Platelet Volume 9.4 fL (9.4-12.4); Monocytes # (auto) 0.96 K/uL (0.11-0.59); Monocytes % (auto) 6.5 %; Neutrophils # (auto) 11.71 K/uL (1.40-6.50); Neutrophils % (auto) 79.2 %; Platelet Count 284 K/uL (130-400); RDW Coefficient of Variation 14.3 % (11.5-14.5); RDW Standard Deviation 46.5 fL (36.4-46.3); Red Blood Count 4.64 M/uL (4.70-6.10); White Blood Count 14.77 K/ul (4.8-10.8)
[2024-08-22 12:21] LABS: Albumin Globulin Ratio 0.9 (0.9-2); BUN Creatinine Ratio 25.3 (10-20); Bilirubin,Total 0.6 mg/dl (0.2-1.0); Calcium 9.2 mg/dl (8.6-10.3); Creatinine Clr Calc Pharmacy 80.1 ml/min; Globulin 4.4 gm/dl (2.5-4.0); Potassium 4.2 mmol/L (3.5-5.1); Total Protein 8.4 gm/dl (6.0-8.3)
[2024-08-22 12:31] LABS: INR 1.1 (0.9-1.1); Prothrombin Time 11.5 Seconds (9.0-12.0)
[2024-08-22 12:36] LABS: Thyroid Stimulating Hormone 1.924 uIu/ml (0.300-4.500)
--- NOTE | 2024-08-22 12:43 | CT Scan Report ---
CT head/brain wo con CLINICAL HISTORY: syncope; fall from standing Technique: Contiguous axial CT images of the head were acquired from the base of the skull to the arturo bob without intravenous contrast administration. Images were viewed in brain, subdural and bone [facility]. Automated dose lowering techniques and/or adjustment according to patient size were utilized for this exam. Comparison: None available at the time of this dictation. Findings: The ventricles, basal cisterns, and cerebral sulci are normal. There is no acute intracranial hemorrh age or evidence of acute territorial infarction. Neither mass effect, shift of the midline structures , nor abnormal extra-axial fluid collections are shown. Imaged portions of the paranasal sinuses and mastoid air cells are clear. The orbits appear normal. There are no acute fractures of the calvaria. Scalp swelling is seen in the left frontal soft tissues . Impression: No acute intracranial hemorrhage or skull fractures. Scalp swelling is seen in the left frontal soft tissues. ACT 112: Negative or not required by law. Electronically signed by: Juan Olivo M.D. 08/22/2024 12:40 PM
--- NOTE | 2024-08-22 12:51 | CT Scan Report ---
CT cervical spine wo con CLINICAL HISTORY: syncope; fall from standing TECHNIQUE: Multidetector row helical CT of the cervical spine was performed without administration of intravenous contrast. Coronal and sagittal reformations were obtained. Automated dose lowering techn iques and/or adjustment according to patient size were utilized for this exam. Comparison: None available at the time of this dictation. FINDINGS: No acute fractures or subluxations are identified. The vertebral body heights and disk spaces are wel l maintained. The alignment is normal. Soft tissues are unremarkable. IMPRESSION: No evidence of acute bony injury. ACT 112: Negative or not required by law. Electronically signed by: Juan Olivo M.D. 08/22/2024 12:49 PM
--- NOTE | 2024-08-22 15:31 | XRay Report ---
Chest radiograph, one view History: Chest pain Comparison: None Findings: Single AP view of the chest performed. No focal consolidation or pleural effusion. No pneumothorax. The cardiomediastinal silhouette is within normal limits. Normal pulmonary vascularity. No evidence for lymphadenopathy. No visualized bony or soft tissue abnormality. Impression: Normal chest radiograph Electronically signed by Micah Davis 08-22-2024 3:30 PM
[2024-08-22 15:42] LABS: Adenovirus PCR Not Detected (NotDetected); Bordetella parapertussis PCR Not Detected (NotDetected); Bordetella pertussis PCR Not Detected (NotDetected); Chlamydia pneumoniae PCR Not Detected (NotDetected); Coronavirus 229E PCR Not Detected (NotDetected); Coronavirus CoV-2 (COVID19)PCR Not Detected (NotDetected); Coronavirus HKU1 PCR Not Detected (NotDetected); Coronavirus NL63 PCR Not Detected (NotDetected); Coronavirus OC43PCR Not Detected (NotDetected); Human Metapneumovirus PCR Not Detected (NotDetected); Influenza A PCR Not Detected (NotDetected); Influenza B PCR Not Detected (NotDetected); Mycoplasma pneumoniae PCR Not Detected (NotDetected); Parainfluenza Virus 1 PCR Not Detected (NotDetected); Parainfluenza Virus 2 PCR Not Detected (NotDetected); Parainfluenza Virus 3 PCR Not Detected (NotDetected); Parainfluenza Virus 4 PCR Not Detected (NotDetected); Respiratory Syncytial VirusPCR Not Detected (NotDetected); Rhinovirus/Enterovirus PCR Not Detected (NotDetected)
--- NOTE | 2024-08-22 16:07 | History & Physical Report ---
Date of Service August 22, 2024 Assessment & Plan (1) Syncope and collapse: Plan: Patient is 68 year old male with PMH HTN, dyslipidemia, CAD, history bladder cancer, presented to ER with c/o syncopal episode today. In ER vitals stable. WBC: 14, Hgb: 13. Initial troponin negative Obtain EKG CT Head: No acute intracranial hemorrhage or skull fractures. Scalp swelling is seen in the left frontal soft tissues. CXR: no acute infiltrate DDx: vasovagal syncope, arrhythmia, orthostatic hypotension. Lower suspicion for seizure or cardiac etiologies with history Trend troponin Echo Carotid doppler Orthostatic vitals Fall precautions CBC, BMP in am If recurrent or changing symptoms may consider MRI brain (2) Anemia: Plan: Hgb: 13. Was 13 in 04/2024 and 15 in 02/2021 Consider anemia lab workup (3) Hypertension: (4) Dyslipidemia: (5) Coronary artery disease: Plan: Continue atorvastatin, carvedilol, lisinopril (6) History of bladder cancer: Plan: S/P surgery (7) Tobacco use: Plan: Cessation encouraged. Patient reports trying to quit in past Nicotine patch DVT Prophylaxis SCDs for now Admit telemetry Full Code as per discussion with pt Follows with Lottie Soto PA-C for routine care Pt was seen and care coordinated with Dr Eagle. See addendum I spent a total of 77 minutes reviewing notes, outpatient records, labs, medication, coordinating, documenting and providing care for this patient excluding time spent in the performance of separately billed services. History of Present Illness Chief Complaint: syncope Primary Care Provider: Lottie Soto PA-C Patient is 68 year old male with PMH HTN, dyslipidemia, CAD, history bladder cancer, presented to ER with c/o syncope. Patient states today woke up in normal health. States had cup of coffee and couple of bites of a sticky bun today. Later he went down in basement and smoked multiple cigarettes and then walked couple of laps. States was feeling ok at that time. He walked up stairs. When he got upstairs he felt hot and then felt sweaty. He walked to bathroom, urinated and then washed his face with cold water. States feeling a little dizzy. He turned around to dry his face and walk out of bathroom and next thing he knew he was on the floor to his talking to him. reported patient passed out and she hurt the thud of fall and quickly got to him. States he seemed a little fuzzy but then seemed back to his baseline mental status. denies noticing any convulsion type movements. Patient states after episode felt fine. He states has some tenderness over left forehead in area of edema. Denies vision changes, CP, SOB, palpitations. Patient reports episode of syncope in 2022 in which he had visual disturbance followed by syncopal episode in which patient related to taking citalopram for first time. He denies any recurrent syncope since that time. Reports chronic nasal congestion. Denies fever/chills, diaphoresis, N/V/D/C, CARPIO, neck pain, CP, SOB, orthopnea, palpitations, cough, sore throat, abdominal pain, paresthesias, weakness, extremity weakness, extremity edema, rashes, urinary symptoms. Allergies Allergy/AdvReac Type Severity Reaction Status Date / Time clindamycin Allergy Unknown RASH Verified 08/22/24 15:38 latex Allergy Unknown ?? Verified 08/22/24 15:38 MOUTH SORENESS AFTER DENTAL VISIT metoprolol Allergy Unknown METOPROLOL Verified 08/22/24 15:38 ALLERGY?? Home Medications Medication Instructions Recorded Confirmed Type atorvastatin 40 mg tablet 40 mg PO QPM 04/30/23 08/22/24 History carvedilol 6.25 mg tablet 6.25 mg PO BID 04/30/23 08/22/24 History lisinopril 40 mg tablet 40 mg PO PM 04/30/23 08/22/24 History ibuprofen 200 mg tablet 200 mg PO QAM PRN Pain 08/22/24 08/22/24 History sodium chloride 0.65 % nasal spray 2 spray intranasal Q4H PRN Nasal 08/22/24 08/22/24 History aerosol Congestion/Dryness Past Med/Surg History Problem List (Updated 08/23/24 @ 10:32 by Radha Bautista MD) Orthostatic hypotension Tobacco use Anemia Syncope and collapse (Acute) Epistaxis (Acute) Hypertension (Chronic) Dyslipidemia (Chronic) Coronary artery disease (Chronic) History of bladder cancer (Chronic) Posterior epistaxis Surgical History (Updated 08/22/24 @ 18:26 by Melissa Herndon PA-C) History of colonoscopy History of cystoscopy Family History (Updated 08/22/24 @ 18:27 by Melissa Herndon PA-C) Other Heart disease Hypertension Social History (Updated 08/22/24 @ 18:27 by Melissa Herndon PA-C) Smoking Status: Current every day smoker Tobacco Type: Cigarettes Cigarettes Per Day: 0.75 ppd; Second Hand Exposure: No; Do You Dip or Chew Tobacco: No; Hx Alcohol Use: No Hx Substance Use: No Preferred Language: Algerian Communication Ability: Effective City Council Member Required: No Beliefs That Will Affect Care: None Current Living Situation: Family Feels Safe at Home: Yes Assistive Devices: Cane and Glasses Review of Systems Review of Systems: All systems reviewed & are unremarkable except as noted in HPI & below Physical Exam Physical Exam: General: no distress, WDWN Head: normocephalic, atraumatic Eyes: PERRL, EOM's intact, conjunctiva non-injected, anicteric ENT: normal inspection external ears, nose, mucous membranes moist Neck: supple, trachea midline, non-tender Lungs: clear, no respiratory distress, no wheezing/rhonchi/rales CV: RRR, no murmur, no pretibial edema Abd: normal BS, soft, non-tender Ext: no cyanosis, no calf tenderness Neuro: A&O x 3, no focal deficits noted, normal affect Skin: warm, dry Results & Data Results & Data Vital Signs (Past 12 Hours) Vital Signs Temp Pulse Pulse Resp BP BP Pulse Ox 08/22/24 15:31 169/79 H 08/22/24 15:18 21 08/22/24 15:04 97 08/22/24 15:00 83 22 96 08/22/24 15:00 83 19 157/80 H 97 08/22/24 14:54 83 23 97 08/22/24 14:48 84 21 96 08/22/24 14:30 159/77 H 08/22/24 14:30 159/77 H 08/22/24 14:30 82 20 159/77 H 98 08/22/24 14:00 80 22 144/74 H 97 08/22/24 13:48 77 17 176/90 H 97 08/22/24 13:06 75 18 149/79 H 94 08/22/24 12:51 75 08/22/24 12:30 78 28 H 142/81 H 100 08/22/24 12:00 75 20 146/72 H 97 08/22/24 11:48 79 28 H 129/97 97 08/22/24 11:45 96 08/22/24 11:41 36.8 C 77 14 129/97 96 O2 Del Method 08/22/24 15:31 08/22/24 15:18 08/22/24 15:04 Room Air 08/22/24 15:00 08/22/24 15:00 Room Air 08/22/24 14:54 08/22/24 14:48 08/22/24 14:30 08/22/24 14:30 08/22/24 14:30 Room Air 08/22/24 14:00 08/22/24 13:48 08/22/24 13:06 08/22/24 12:51 08/22/24 12:30 08/22/24 12:00 08/22/24 11:48 08/22/24 11:45 Room Air 08/22/24 11:41 Room Air Laboratory Results Short CBC 08/22/24 Range/Units 11:49 WBC 14.77 H (4.8-10.8) K/ul Hgb 13.3 L (14.0-18.0) g/dl Hct 41.4 L (42.0-52.0) % Plt Count 284 (130-400) K/uL BMP 08/22/24 11:49 Sodium 135 L Potassium 4.2 Chloride 101 Carbon Dioxide 27 BUN 20 Creatinine 0.79 Glucose 119 H Calcium 9.2 Liver Function 08/22/24 Range/Units 11:49 Total Bilirubin 0.6 (0.2-1.0) mg/dl AST 15 (13-39) U/L ALT 9 (7-52) U/L Alkaline Phosphatase 105 H (34-104) U/L Albumin 4.0 (3.4-5.0) gm/dl Diagnostic Findings Cervical Spine CT 08/22/24 11:45 CT cervical spine wo con CLINICAL HISTORY: syncope; fall from standing TECHNIQUE: Multidetector row helical CT of the cervical spine was performed without administration of intravenous contrast. Coronal and sagittal reformati ons were obtained. Automated dose lowering techniques and/or adjustment according to patient size were utilized for this exam. Comparison: None available at the time of this dictation. FINDINGS: No acute fractures or subluxations are identified. The vertebral body heights and disk spaces are well maintained. The alignment is normal. Soft tissues are unremarkable. IMPRESSION: No evidence of acute bony injury. ACT 112: Negative or not required by law. Electronically signed by: Juan Olivo M.D. 08/22/2024 12:[address] 08/22/24 11:45 CT head/brain wo con CLINICAL HISTORY: syncope; fall from standing Technique: Contiguous axial CT images of the head were acquired from the base of the skull to the vertex without intravenous contrast administration. Images were viewed in brain, subdural and bone windows. Automated dose lowering techniques and/or adjustment according to patient size were utilized for this exam. Comparison: None available at the time of this dictation. Findings: The ventricles, basal cisterns, and cerebral sulci are normal. There is no acute intracranial hemorrhage or evidence of acute territorial infarction. Neither mass effect, shift of the midline structures, nor abnormal extra-axial fluid collections are shown. Imaged portions of the paranasal sinuses and mastoid air cells are clear. The orbits appear normal. There are no acute fractures of the calvaria. Scalp swelling is seen in the left frontal soft tissues. Impression: No acute intracranial hemorrhage or skull fractures. Scalp swelling is seen in the left frontal soft tissues. ACT 112: Negative or not required by law. Electronically signed by: Juan Olivo M.D. 08/22/2024 12:40 PM Chest X-Ray 08/22/24 13:17 Chest radiograph, one view History: Chest pain Comparison: None Findings: Single AP view of the chest performed. No focal consolidation or pleural effusion. No pneumothorax. The cardiomediastinal silhouette is within normal limits. Normal pulmonary vascularity. No evidence for lymphadenopathy. No visualized bony or soft tissue abnormality. Impression: Normal chest radiograph Electronically signed by Mciah Davis 08-22-2024 3:30 PM Supervising Physician Co-Signing Physician Notes Attending Addendum: Case reviewed with the advanced practitioner. I have personally performed a history and physical examination on the patient. I have reviewed the advanced practitioner's documentation on the date of service referenced in note, and I agree with, and take responsibility for the plan of care. please refer to her notes for full details patient seen and examined, records reviewed by myself as well diagnoses and plan of care as per advanced practitioner's notes Hernan Eagle MD
[2024-08-22] MEDS ORDERED: NICOTINE 14 MG/24 HR PATCH TD STA (17:06)
[2024-08-22] MEDS ORDERED: ONDANSETRON INJ 2 MG/ML 2 ML VIAL IV PRN (18:29)
[2024-08-22] MEDS ORDERED: SODIUM CHLORIDE 0.65% NA SOLN 45 ML (OCEAN) NAE PRN (18:29)
[2024-08-22] MEDS ORDERED: POLYETHYLENE (MIRALAX) 17 GM PACK PO PRN (18:29)
[2024-08-22] MEDS: NICOTINE 14 MG/24 HR PATCH TD STA (19:26)
[2024-08-22] MEDS: ATORVASTATIN 40 MG TAB PO SCH (21:10)
[2024-08-22] MEDS: ACETAMINOPHEN 325 MG TAB PO PRN (21:10)
[2024-08-22] MEDS: carvediloL 6.25 MG TAB PO SCH (21:10)
[2024-08-22] MEDS: lisinopril 40 MG TAB PO SCH (21:10)
--- NOTE | 2024-08-23 05:10 | Ultrasound Report ---
Exam(s): US CAROTID EXAM: US Duplex Bilateral Extracranial Arteries CLINICAL HISTORY: Reason for exam: syncope. TECHNIQUE: Real-time duplex ultrasound scan of the extracranial arteries integrating B-mode two-dimensional vascular structure, Doppler spectral analysis and color flow Doppler imaging. COMPARISON: No relevant prior studies available. FINDINGS: : Systolic velocity within the proximal right ICA is 155 cm/s. Peak Velocity within the Proximal ECA Is 192 Cm/S. Peak Systolic Velocity within the Mid ICA Is 88 Cm/S. Peak Systolic Velocity within the Distal ICA Is 62 Cm/S. Peak Systolic Velocity within the Vertebral Arteries 40 Cm/S. Systolic Ratio between the Common and Internal Carotid Arteries Is 2.2 Right vertebral artery: Both Vertebral Arteries Demonstrate Antegrade Flow. Left common carotid artery: Peak Systolic Velocity within the Left Common Carotid Artery Is 63 Cm/S. Peak Systolic Velocity within the Left External Carotid Artery Is 225 Cm/S. Peak Systolic Velocity within the Proximal Internal Carotid Artery Is 110 Cm/S. Peak Systolic Velocity within the Mid ICA Is 94 Cm/S. Peak Systolic Velocity within the Distal ICA Is 116 Cm/S. Peak Systolic Velocity within the Vertebral Artery Is 55 Cm/S. ICA/CCA Ratio Is 1.8. Left external carotid artery: See above. Lymph nodes: Unremarkable. No lymphadenopathy. CAROTID STENOSIS REFERENCE USING SRU CRITERIA: Mild - <50% stenosis. ICA PSV is less than 125 cm/second and plaque or intimal thickening is visible. Moderate - 50-69% stenosis. ICA PSV is 125 to 230 cm/second and plaque is visible. Severe - 70-94% stenosis. ICA PSV is more than 230 cm/second and visible plaque with lumen narrowing is seen. Near occlusion - 95-99% stenosis. ICA PSV is variable and significant plaque with luminal narrowing is seen. Occluded - 100% stenosis. No flow identified. IMPRESSION: 50-69% stenosis involving the right ICA Hemodynamically significant stenosis involving the left external carotid artery Electronically signed by: Didier Campos MD 08/23/24 05:09 AM
[2024-08-23 06:10] LABS: Appearance Urine Clear (Clear); Bacteria Urine Automated None Seen (None Seen); Bilirubin Urine Negative (Negative); Blood Urine Negative (Negative); Cast Urine Automated 0-2 /lpf (0-2); Color Urine Yellow; Epithelial Cell Urine Auto 0-2 /hpf (0-2); Glucose Urine UA Negative (Negative); Ketones Urine 2+ (Negative); Leukocyte Esterase Urine Negative (Negative); Nitrite Urine Negative (Negative); Protein Urine 1+ (Negative); RBC Urine Automated 0-2 /hpf (0-2); Specific Gravity Urine 1.021 (1.000-1.030); Urobilinogen Urine Negative (Negative); WBC Urine Automated 0-5 /hpf (0-5); pH Urine 5.5 (4.5-7.5)
[2024-08-23 07:34] LABS: Basophils # (auto) 0.04 K/uL (0.00-0.20); Basophils % (auto) 0.4 %; Eosinophils # (auto) 0.04 K/uL (0.00-0.50); Eosinophils % (auto) 0.4 %; Hematocrit (blood only) 41.5 % (42.0-52.0); Hemoglobin 13.3 g/dl (14.0-18.0); Immature Granulocytes # (auto) 0.05 K/uL (0.01-0.20); Immature Granulocytes % (auto) 0.5 %; Lymphocytes # (auto) 2.19 K/uL (1.20-3.40); Lymphocytes % (auto) 20.5 %; Mean Corpuscular Hemoglobin 28.2 pg (25.0-34.0); Mean Corpuscular Volume 87.9 fL (80.0-100.0); Mean Platelet Volume 9.3 fL (9.4-12.4); Monocytes # (auto) 0.91 K/uL (0.11-0.59); Monocytes % (auto) 8.5 %; Neutrophils # (auto) 7.44 K/uL (1.40-6.50); Neutrophils % (auto) 69.7 %; Platelet Count 287 K/uL (130-400); RDW Coefficient of Variation 14.1 % (11.5-14.5); RDW Standard Deviation 45.3 fL (36.4-46.3); Red Blood Count 4.72 M/uL (4.70-6.10); White Blood Count 10.67 K/ul (4.8-10.8)
[2024-08-23 07:54] LABS: Albumin Globulin Ratio 0.9 (0.9-2); Albumin Level 3.8 gm/dl (3.4-5.0); BUN Creatinine Ratio 25.4 (10-20); Bilirubin,Total 0.7 mg/dl (0.2-1.0); Calcium 9.4 mg/dl (8.6-10.3); Creatinine Clr Calc Pharmacy 87.2 ml/min; Globulin 4.4 gm/dl (2.5-4.0); Potassium 4.2 mmol/L (3.5-5.1); Total Protein 8.2 gm/dl (6.0-8.3)
[2024-08-23] MEDS: NICOTINE 14 MG/24 HR PATCH TD SCH (08:05)
--- NOTE | 2024-08-23 10:34 | Discharge Summary ---
Discharge Summary Date of Service August 23, 2024 Principal Dx & Hospital Course #1 = Principal Diagnosis (1) Syncope and collapse: (2) Hypertension: (3) Dyslipidemia: (4) Coronary artery disease: (5) History of bladder cancer: (6) Tobacco use: (7) Orthostatic hypotension: Notes For Next Care Provider Medication Changes From Visit No additional medication Admission HPI Per Admitting Provider Patient is 68 year old male with PMH HTN, dyslipidemia, CAD, history bladder cancer, presented to ER with c/o syncope. He was monitored overnight, initial EKG was unremarkable as well as a follow-up 1, echocardiogram showed no finding with baseline ejection fraction of 55 to 60% with grade 1 diastolic LV dysfunction and pulmonary artery pressure of 40. Patient on several occasions was found to be orthostatic despite having no volume depletion. I assume that this is due to his antihypertensives, patient was given ADAM hose, given education on how to prevent dehydration and volume depletion, explained to transition slowly between positions. Case was discussed with him and his spouse at bedside. Will proceed with discharging him home. In case of future events of this kind, he might need event monitoring to exclude any underlying rhythm abnormalities. Updated Medication List Medication Instructions Recorded Confirmed Type atorvastatin 40 mg tablet 40 mg PO QPM 04/30/23 08/22/24 History carvedilol 6.25 mg tablet 6.25 mg PO BID 04/30/23 08/22/24 History lisinopril 40 mg tablet 40 mg PO PM 04/30/23 08/22/24 History ibuprofen 200 mg tablet 200 mg PO QAM PRN Pain 08/22/24 08/22/24 History sodium chloride 0.65 % nasal spray 2 spray intranasal Q4H PRN Nasal 08/22/24 08/22/24 History aerosol Congestion/Dryness Hospital Stay Data Consultations 08/22/24 15:42 ED Decision to Admit Stat Diagnostic Imagining Performed 08/22/24 11:45 CT cervical spine wo con Stat CT head/brain wo con Stat 08/22/24 18:29 US carotid doppler BI Urgent Pending Results Patient Have Any Pending Studies at Discharge: No Discharge Instructions Given to Patient (Per Discharging Provider) Patient is recommended to transition from supine to sitting to standing position very slowly, during transition he has to be observant about any dizziness and in case of noticing such to stop and go back to a safer position to avoid fall. Patient was explained not to allow himself to get dehydrated Patient was explained to wear ADAM hose during the daytime, can take off at night Total Time Total Time Spent Total Time Spent (In Minutes): More than 35-minute
[2024-08-23 11:31] VITALS: RESP 20; TEMP 97.7; O2SAT 97
[2024-08-23 11:54] VITALS: BP 158/69; PULSE 81
--- NOTE | 2024-08-23 22:03 | Electrocardiogram Report ---
Test Reason : Blood Pressure : */* mmHG Vent. Rate : 74 BPM Atrial Rate : 74 BPM P-R Int : 158 ms QRS Dur : 74 ms QT Int : 372 ms P-R-T Axes : 76 68 75 degrees QTcB Int : 412 ms Normal sinus rhythm Nonspecific ST abnormality Abnormal ECG When compared with ECG of 30-Apr-2023 10:28, No significant change was found Confirmed by Lam Barclay ([id number]) on 08/23/2024 10:02:58 PM Referred By: REFERRED SELF Confirmed By: Lam Barclay
--- NOTE | 2024-08-23 22:03 | Electrocardiogram Report ---
Test Reason : Blood Pressure : */* mmHG Vent. Rate : 72 BPM Atrial Rate : 72 BPM P-R Int : 158 ms QRS Dur : 82 ms QT Int : 390 ms P-R-T Axes : 74 48 59 degrees QTcB Int : 427 ms Normal sinus rhythm Nonspecific ST abnormality When compared with ECG of 22-Aug-2024 11:40, No significant change was found Confirmed by Lam Barclay ([id number]) on 08/23/2024 10:03:21 PM Referred By: REFERRED SELF Confirmed By: Lam Barclay
--- NOTE | 2024-08-23 22:05 | Electrocardiogram Report ---
Test Reason : Blood Pressure : */* mmHG Vent. Rate : 70 BPM Atrial Rate : 70 BPM P-R Int : 162 ms QRS Dur : 82 ms QT Int : 404 ms P-R-T Axes : 74 50 60 degrees QTcB Int : 436 ms Normal sinus rhythm Normal ECG When compared with ECG of 22-Aug-2024 22:53, No significant change was found Confirmed by Lam Barclay ([id number]) on 08/23/2024 10:05:02 PM Referred By: REFERRED SELF Confirmed By: Lam Barclay
== END 2024-08-23 13:01 | disposition home or self-care (01) ==
LOC: ED 11:34 → 2N 11:34 → SUATTDRO 18:11